=== PATIENT | female | born 1970 | race Caucasian/White ===

== ENCOUNTER 2016-09-16 16:20 | Emergency (ER) | payer OTHER ==
[2016-09-16 17:37] VITALS: BP 107/41
--- NOTE | 2016-09-16 18:35 | RAD ---
INDICATION: Fevers, chills and cough COMPARISON: Chest x-ray dated June 04, 2015 TECHNIQUE: PA and lateral views of the chest were obtained. FINDINGS: The heart and mediastinum are normal in size and contour. The lungs are grossly clear. There is no evidence of large pleural effusion. Visualized bones are normal for the patient's age. There is no radiographic evidence of free air beneath the diaphragm IMPRESSION: No radiographic evidence of acute cardiopulmonary disease.
--- NOTE | 2016-09-16 18:39 | UC ---
Respiratory Complaint HPI - HPI Summary HPI Summary: 46 yo female with cough x 5 days fever and chills wheezing no n/v/d - History of Current Complaint Chief Complaint: UCGeneralIllness Stated Complaint: FEVER/CONGESTED Time Seen by Provider: 09/16/16 17:08 Hx Obtained From: Patient Hx Last Menstrual Period: 1998 Onset/Duration: Gradual Onset, Lasting Days Timing: Constant Severity Initially: Mild Severity Currently: Moderate Pain Intensity: 8 Pain Scale Used: 0-10 Numeric Character: Cough: Nonproductive Aggravating Factors: Deep Breaths, Recumbent Position Alleviating Factors: Bronchodilator Associated Signs And Symptoms: Positive: Fever, Chills, Wheezing, Nasal Congestion, Sinus Discomfort - Allergies/Home Medications Allergies/Adverse Reactions: Allergies Allergy/AdvReac Type Severity Reaction Status Date / Time Sulfa Antibiotics Allergy Rash Verified 09/16/16 17:07 Tetraglycine Allergy Rash Verified 09/16/16 17:07 DYE Allergy Rash Uncoded 09/16/16 17:07 nonsteroidals Allergy Rash Uncoded 09/16/16 17:07 splenda Allergy Rash Uncoded 09/16/16 17:07 Home Medications: Home Medications guaiFENesin ER TAB [Mucinex*] 600 mg PO BID 09/16/16 [History Confirmed 09/16/16 ] PMH/Surg Hx/FS Hx/Imm Hx Endocrine History Of: Denies: Diabetes Cardiovascular History Of: Denies: Cardiac Disorders, Hypertension Respiratory History Of: Reports: Asthma, Bronchitis, Pneumonia - Surgical History Surgical History: Yes Surgery Procedure, Year, and Place: UTERINE aBLATION 1998. 3 C-SECTS. APPY. T &A - Family History Known Family History: Positive: Hypertension - Social History Alcohol Use: None Substance Use Type: None Smoking Status (MU): Heavy Every Day Tobacco Smoker Type: Cigarettes Amount Used/How Often: 1ppd Household Exposure Type: Cigarettes Review of Systems Constitutional: Fever, Chills, Fatigue Skin: Negative Eyes: Negative ENT: Nasal Discharge Respiratory: Cough Cardiovascular: Negative Gastrointestinal: Negative Genitourinary: Negative Motor: Negative Neurovascular: Negative Musculoskeletal: Myalgia Neurological: Negative Psychological: Negative All Other Systems Reviewed And Are Negative: Yes Physical Exam Triage Information Reviewed: Yes Appearance: Well-Appearing, No Pain Distress, Well-Nourished Vital Signs: Initial Vital Signs Temp 98.7 F 09/16/16 17:02 Pulse 81 09/16/16 17:02 Resp 16 09/16/16 17:02 BP 107/41 09/16/16 17:02 Pulse Ox 98 09/16/16 17:02 Vital Signs Reviewed: Yes Eyes: Positive: Conjunctiva Clear ENT: Positive: Hearing grossly normal. Negative: Nasal congestion, Nasal drainage, Tonsillar swelling, Tonsillar exudate, Trismus, Muffled/hoarse voice Neck: Positive: Supple, Nontender, No Lymphadenopathy Respiratory: Positive: Lungs clear, Normal breath sounds, No respiratory distress, No accessory muscle use Cardiovascular: Positive: RRR, No Murmur, Pulses Normal Abdomen Description: Positive: No Organomegaly, Soft Musculoskeletal: Positive: ROM Intact, No Edema Neurological: Positive: Alert Psychological Exam: Normal Skin Exam: Normal UC Diagnostic Evaluation - Laboratory O2 Sat by Pulse Oximetry: 98 - normal/ not hypoxic - Radiology Xray Interpretation: No Acute Changes Radiology Interpretation Completed By: Radiologist Respiratory Course/Dx - Differential Dx/Diagnosis Provider Diagnoses: acute bronchitis Discharge - Discharge Plan Condition: Stable Disposition: HOME Prescriptions: Amoxicillin (*) 875 mg PO BID #20 tab Prednisone [Deltasone] 40 mg PO DAILY #10 tab Patient Education Materials: Acute Bronchitis (ED) Forms: *Work Release Referrals: Fabrizio Prater DO [Primary Care Provider] - 3 Days (if not better ) Additional Instructions: use inhaler as directed recheck in 3-6 days if not better
== END 2016-09-16 18:36 | disposition home or self-care (01) ==
LOC: UCCORT 16:20
DX: J20.9 Acute bronchitis, unspecified (principal); Z88.2 Allergy status to sulfonamides; Z88.8 Allergy status to other drugs, medicaments and biological substances; F17.210 Nicotine dependence, cigarettes, uncomplicated
CPT/HCPCS: 71020; 87502; 99212; G0463

== ENCOUNTER 2016-09-22 07:54 | Emergency (ER) | payer OTHER ==
[2016-09-22 08:18] VITALS: BP 94/70
[2016-09-22] MEDS ORDERED: Ipratropium 0.5MG/2.5ML NEB* 0.5 MG/2.5 ML NEB.SOLN INH ONE (08:42)
[2016-09-22] MEDS ORDERED: Albuterol 2.5 MG/3 ML NEB.SOL* (0.083%) INH ONE (08:42)
--- NOTE | 2016-09-22 08:42 | UC ---
Respiratory Complaint HPI - HPI Summary HPI Summary: Seen here 5 days with cough high fever and wheezing Fever has been gone for about 3-4 days but now cough is worse no n/v/d states she was septic 2 months ago with a left thigh abscess while she was down in [facility] 3 weeks ago - History of Current Complaint Chief Complaint: UCRespiratory Stated Complaint: RE CK BRONCHITIS Time Seen by Provider: 09/22/16 08:27 Hx Obtained From: Patient Hx Last Menstrual Period: 1998 Onset/Duration: Gradual Onset, Lasting Days Timing: Constant Severity Initially: Mild Severity Currently: Moderate Pain Intensity: 4 Pain Scale Used: 0-10 Numeric Character: Cough: Nonproductive Aggravating Factors: Deep Breaths, Recumbent Position Alleviating Factors: Nothing Associated Signs And Symptoms: Positive: Fever - low grade now, Wheezing - Allergies/Home Medications Allergies/Adverse Reactions: Allergies Allergy/AdvReac Type Severity Reaction Status Date / Time Sulfa Antibiotics Allergy Rash Verified 09/16/16 17:07 Tetracycline Allergy Rash Verified 09/22/16 08:11 Tetraglycine Allergy Rash Verified 09/16/16 17:07 DYE Allergy Rash Uncoded 09/16/16 17:07 nonsteroidals Allergy Rash Uncoded 09/16/16 17:07 splenda Allergy Rash Uncoded 09/16/16 17:07 Home Medications: Home Medications Albuterol HFA INHALER* [Ventolin HFA Inhaler*] 2 puff INH Q4H PRN 09/22/16 [ History Confirmed 09/22/16] PMH/Surg Hx/FS Hx/Imm Hx Previously Healthy: Yes Endocrine History Of: Denies: Diabetes Cardiovascular History Of: Denies: Cardiac Disorders, Hypertension Respiratory History Of: Reports: Asthma, Bronchitis, Pneumonia - Surgical History Surgical History: Yes Surgery Procedure, Year, and Place: UTERINE ABLATION 1998. 3 C-SECTS. APPY. T &A - Family History Known Family History: Positive: Hypertension - Social History Alcohol Use: None Substance Use Type: None Smoking Status (MU): Heavy Every Day Tobacco Smoker Type: Cigarettes Amount Used/How Often: 1ppd Household Exposure Type: Cigarettes Review of Systems Constitutional: Fever, Chills Skin: Negative Eyes: Negative ENT: Negative Respiratory: Cough Cardiovascular: Negative Gastrointestinal: Negative Genitourinary: Negative Motor: Negative Neurovascular: Negative Musculoskeletal: Negative Neurological: Negative Psychological: Negative All Other Systems Reviewed And Are Negative: Yes Physical Exam Triage Information Reviewed: Yes Appearance: Well-Appearing, No Pain Distress, Well-Nourished Vital Signs: Initial Vital Signs Temp 98.8 F 09/22/16 07:57 Pulse 93 09/22/16 07:57 Resp 24 09/22/16 07:57 BP 94/70 09/22/16 07:57 Pulse Ox 99 09/22/16 07:57 Eyes: Positive: Conjunctiva Clear ENT: Positive: Hearing grossly normal. Negative: Nasal congestion, Nasal drainage, Trismus, Muffled/hoarse voice Neck: Positive: Supple, Nontender, No Lymphadenopathy Respiratory: Positive: No respiratory distress, No accessory muscle use, Wheezing - with forced expiration only Cardiovascular: Positive: RRR, No Murmur. Negative: Tachycardia, Bradycardia Musculoskeletal: Positive: ROM Intact, No Edema Neurological: Positive: Alert Psychological Exam: Normal Skin Exam: Normal UC Diagnostic Evaluation - Laboratory O2 Sat by Pulse Oximetry: 99 - normal/not hypoxic Re-Evaluation - Re-Evaluation First Eval Re-Evaluation Time: 09:50 Change: Unchanged - after neb still feels dysneic Respiratory Course/Dx - Course Course Of Treatment: EKG- NSR/no st changes/no ectopy. D/W Tiffany Guevara [employer] at [facility]/accepts pt. Pt declines EMS transfer - Differential Dx/Diagnosis Provider Diagnoses: Dyspnea of uncertain cause Discharge - Discharge Plan Condition: Stable Disposition: TRANS HIGHER LVL OF CARE FAC Referrals: Fabrizio Prater DO [Primary Care Provider] -
--- NOTE | 2016-09-22 08:57 | RAD ---
HISTORY: Cough, wheezing COMPARISONS: September 16, 2016 VIEWS: 2: Frontal dual-energy and lateral views of the chest. FINDINGS: CARDIOMEDIASTINAL SILHOUETTE: The cardiomediastinal silhouette is normal. KARLA: The karla are normal. PLEURA: The costophrenic angles are sharp. No pleural abnormalities are noted. LUNG PARENCHYMA: The lungs are clear. ABDOMEN: The upper abdomen is clear. There is no subphrenic gas. BONES AND SOFT TISSUES: No bone or soft tissue abnormalities are noted. OTHER: None. IMPRESSION: NO ACTIVE CARDIOPULMONARY DISEASE.
== END 2016-09-22 10:04 | disposition left against medical advice (07) ==
LOC: UCCORT 07:54
DX: R06.00 Dyspnea, unspecified (principal); F17.210 Nicotine dependence, cigarettes, uncomplicated; Z88.2 Allergy status to sulfonamides; Z88.3 Allergy status to other anti-infective agents
CPT/HCPCS: 71020; 93005; 99213; G0463; J7644

== ENCOUNTER 2017-05-16 20:33 | Emergency (ER) | payer OTHER ==
[2017-05-16 20:53] VITALS: BP 120/76
--- NOTE | 2017-05-16 21:26 | UC ---
Abdominal Pain Female HPI - HPI Summary HPI Summary: Pt presents with c/o worsening epigastric and RUQ pain X 1 week. Pt reports that she has had episodic nausea and vomiting, osvaldo loose, pale stools X1 week. Pt reports that she at e a cooking today and had sudden onset of worsening pain, nausea and epigastric pain. - History of Current Complaint Chief Complaint: UCAbdominalPain Stated Complaint: UPPER ABDOMINAL PAIN Time Seen by Provider: 05/16/17 21:12 Hx Obtained From: Patient Hx Last Menstrual Period: 1998 ?: No Onset/Duration: Gradual Onset, Lasting Days - 5, Still Present, Worse Since - onset Timing: Constant Severity Initially: Mild Severity Currently: Moderate Location: Discrete At: RUQ, Epigastric Radiates: Yes Radiates to: Back Character: Colicy, Sharp Aggravating Factor(s): Food, Deep Breaths Alleviating Factor(s): Nothing Associated Signs and Symptoms: Positive: Decreased Appetite, Nausea, Vomiting, Diarrhea, Other: - pale stools - Risk Factors Ectopic Risk Factor: Negative Ovarian Torsion Risk Factor: Negative Allergies/Adverse Reactions: Allergies Allergy/AdvReac Type Severity Reaction Status Date / Time Sulfa Antibiotics Allergy Rash Verified 05/16/17 20:52 Tetracycline Allergy Rash Verified 05/16/17 20:52 Tetraglycine Allergy Rash Verified 05/16/17 20:52 DYE Allergy Rash Uncoded 05/16/17 20:52 nonsteroidals Allergy Rash Uncoded 05/16/17 20:52 splenda Allergy Rash Uncoded 05/16/17 20:52 PMH/Surg Hx/FS Hx/Imm Hx Previously Healthy: Yes - Surgical History Surgical History: Yes Surgery Procedure, Year, and Place: UTERINE ABLATION 1998. 3 C-SECTS. APPY. T &A - Family History Known Family History: Positive: Hypertension - Social History Occupation: Employed Full-time Lives: With Family Alcohol Use: None Substance Use Type: None Smoking Status (MU): Heavy Every Day Tobacco Smoker Type: Cigarettes Amount Used/How Often: 1ppd Have You Smoked in the Last Year: No Household Exposure Type: Cigarettes Review of Systems Constitutional: Negative Skin: Negative Eyes: Negative ENT: Negative Respiratory: Negative Cardiovascular: Negative Gastrointestinal: Abdominal Pain - RUQ, epigastric, Vomiting, Diarrhea, Nausea Genitourinary: Negative Motor: Negative Neurovascular: Negative Musculoskeletal: Negative Neurological: Negative Psychological: Negative Is Patient Immunocompromised?: No All Other Systems Reviewed And Are Negative: Yes Physical Exam Triage Information Reviewed: Yes Appearance: Ill-Appearing, Pain Distress, Obese Vital Signs: Initial Vital Signs Temp 97.5 F 05/16/17 20:48 Pulse 85 05/16/17 20:48 Resp 18 05/16/17 20:48 BP 120/76 05/16/17 20:48 Pulse Ox 97 05/16/17 20:48 Vital Signs Reviewed: Yes Eye Exam: Normal ENT Exam: Normal Neck exam: Normal Respiratory Exam: Normal Cardiovascular Exam: Normal Abdomen Description: Positive: Other: - positive Brown sign, epigastirc pain, that radiates to back Bowel Sounds: Positive: Hypoactive Musculoskeletal Exam: Normal Neurological Exam: Normal Psychological Exam: Normal Skin Exam: Normal Abd Pain Female Course/Dx - Course Course Of Treatment: I discussed with the pt the need for further evaluation and testing. Pt verbalized understanding and agreed to plan of care. pt declined anti nausea medication. Pt agreed to seek care at [facility] ED for further evaluation and testing. - Differential Dx/Diagnosis Differential Diagnosis: Abdominal Aortic Aneurysm, Gall Bladder Disease, Other - IBS, Gastroenteritis Provider Diagnoses: abdominal pain. possible cholecystitis. Pt was referred to [facility] ED - Physician Notification/Consults Discussed Care of Patient With: Darya Moore - Pt accepted Time Discussed With Above Provider: 21:26 Discharge - Discharge Plan Condition: Stable Disposition: HOME Patient Education Materials: Abdominal Pain (ED) Referrals: Fabrizio Prater DO [Primary Care Provider] - As Soon As Possible Additional Instructions: It is recommended that you go to the closest Emergency Room for immediate follow up and testing.
== END 2017-05-16 21:33 | disposition home or self-care (01) ==
LOC: UCCORT 20:33
DX: R10.13 Epigastric pain (principal); F17.210 Nicotine dependence, cigarettes, uncomplicated; Z88.1 Allergy status to other antibiotic agents; Z91.048 Other nonmedicinal substance allergy status
CPT/HCPCS: 99212; G0463

== ENCOUNTER 2017-07-13 07:38 | Emergency (ER) | payer OTHER ==
[2017-07-13 07:51] VITALS: BP 136/71
[2017-07-13] MEDS ORDERED: Albuterol 2.5 MG/3 ML NEB.SOL* (0.083%) INH ONE (08:16)
[2017-07-13] MEDS ORDERED: Ipratropium 0.5MG/2.5ML NEB* 0.5 MG/2.5 ML NEB.SOLN INH ONE (08:16)
--- NOTE | 2017-07-13 08:31 | RAD ---
HISTORY: Cough, fever COMPARISONS: July 09, 2017 VIEWS: 4: Frontal dual-energy and lateral views of the chest. FINDINGS: CARDIOMEDIASTINAL SILHOUETTE: The cardiomediastinal silhouette is normal. KARLA: The karla are normal. PLEURA: The costophrenic angles are sharp. No pleural abnormalities are noted. LUNG PARENCHYMA: The lungs are clear. ABDOMEN: The upper abdomen is clear. There is no subphrenic gas. BONES AND SOFT TISSUES: No bone or soft tissue abnormalities are noted. OTHER: None. IMPRESSION: NO ACTIVE CARDIOPULMONARY DISEASE.
--- NOTE | 2017-08-04 21:55 | UC ---
Respiratory Complaint HPI - HPI Summary HPI Summary: pt seen 07/09/17 for painful dry cough cough. dx bronchitis, chest/back pain and lyn. sx not improving. sx have worsened - cough is pain and interfering with sleep - History of Current Complaint Chief Complaint: UCRespiratory Stated Complaint: RE-CHECK RESPIRATORY Time Seen by Provider: 07/13/17 07:57 Hx Obtained From: Patient Hx Last Menstrual Period: 1998 ?: No Onset/Duration: Gradual Onset, Lasting Weeks, Worse Since Timing: Constant Severity Initially: Moderate Severity Currently: Moderate Pain Intensity: 4 Pain Scale Used: 0-10 Numeric Character: Cough: Nonproductive Aggravating Factors: Deep Breaths Alleviating Factors: Bronchodilator Associated Signs And Symptoms: Positive: Pleuritic Chest Pain, Sinus Discomfort. Negative: Dyspnea, Fever, Chills, Wheezing, Hemoptysis, Dizziness, Calf Pain, Calf Swelling, Edema, URI, Hoarseness - Allergies/Home Medications Allergies/Adverse Reactions: Allergies Allergy/AdvReac Type Severity Reaction Status Date / Time Sulfa Antibiotics Allergy Rash Verified 07/09/17 09:59 Tetracycline Allergy Rash Verified 07/09/17 09:59 Tetraglycine Allergy Rash Verified 07/09/17 09:59 DYE Allergy Rash Uncoded 07/09/17 09:59 nonsteroidals Allergy Rash Uncoded 07/09/17 09:59 splenda Allergy Rash Uncoded 07/09/17 09:59 PMH/Surg Hx/FS Hx/Imm Hx Previously Healthy: Yes - Surgical History Surgical History: Yes Surgery Procedure, Year, and Place: UTERINE ABLATION 1998. 3 C-SECTS. APPY. T &A - Family History Known Family History: Positive: Hypertension Negative: Cardiac Disease, Diabetes - Social History Occupation: Employed Full-time Lives: With Family Alcohol Use: Rare Substance Use Type: None Smoking Status (MU): Light Every Day Tobacco Smoker Type: Cigarettes Amount Used/How Often: 1ppd Have You Smoked in the Last Year: Yes Household Exposure Type: Cigarettes Cessation Counseling: Patient Advised to Stop Review of Systems Constitutional: Fatigue - from cough and lack of sleep Skin: Negative Eyes: Negative ENT: Nasal Discharge, Sinus Congestion, Sinus Pain/Tenderness Respiratory: Cough Cardiovascular: Chest Pain - pleuritic Gastrointestinal: Negative Musculoskeletal: Negative Neurological: Headache - with cough Psychological: Negative All Other Systems Reviewed And Are Negative: Yes Physical Exam Triage Information Reviewed: Yes Appearance: Well-Appearing, No Pain Distress, Well-Nourished Vital Signs: Initial Vital Signs Temp 98.1 F 07/13/17 07:42 Pulse 82 07/13/17 07:42 Resp 24 07/13/17 07:42 BP 136/71 07/13/17 07:42 Pulse Ox 98 07/13/17 07:42 Vital Signs Reviewed: Yes Eyes: Positive: Conjunctiva Clear. Negative: Discharge ENT: Positive: Hearing grossly normal, Pharynx normal, Nasal congestion, Nasal drainage, TMs normal, Sinus tenderness. Negative: Tonsillar swelling, Tonsillar exudate, Trismus, Muffled voice, Hoarse voice, Dental tenderness Neck: Positive: Supple, Nontender, No Lymphadenopathy Respiratory: Positive: No respiratory distress, No accessory muscle use, Wheezing - few wheezes Cardiovascular: Positive: RRR, No Murmur Abdomen Description: Positive: Nontender, Soft. Negative: Distended, Guarding Bowel Sounds: Positive: Present Musculoskeletal Exam: Normal Neurological: Positive: Alert, Muscle Tone Normal Psychological: Positive: Age Appropriate Behavior Skin Exam: Normal UC Diagnostic Evaluation - Laboratory O2 Sat by Pulse Oximetry: 98 Respiratory Course/Dx - Course Course Of Treatment: subjective improvement s/p neb - Differential Dx/Diagnosis Differential Diagnosis/HQI/PQRI: Bronchitis, Lower Resp Infection, Sinusitis Provider Diagnoses: bronchitis Discharge - Discharge Plan Condition: Stable Disposition: HOME Prescriptions: Benzonatate CAP* [Tessalon 100 MG CAP*] 100 mg PO TID #30 cap Cefdinir [Cefdinir 300 MG CAP] 300 mg PO BID #20 cap guaiFENesin ER TAB [Mucinex*] 600 mg PO BID PRN #1 box PRN Reason: Cough guaiFENesin/CODIEN 100MG-10MG* [Robitussin AC 100Mg-10Mg*] 5 - 10 ml PO BEDTIME PRN #100 udc MDD 10ml PRN Reason: Cough Patient Education Materials: Acute Bronchitis (ED) Forms: *Work Release Referrals: Fabrizio Prater DO [Primary Care Provider] - 2 Days (FOLLOW UP IN 3-5 DAYS IF NOT IMPROVING. FOLLOW UP SOONER IF SYMPTOMS WORSEN OR NEW ONES DEVELOP.) Additional Instructions: TRY USING THE NETTI POT IN THE MORNINGS DISCUSSED. YOU MUST ALWAYS USE CLEAN WATER. REMEMBER, POSTURE IS AN IMPORTANT FACTOR IN SINUS DRAINAGE. MOVE YOUR NECK, BREATHE. INHALED BRONCHODILATORS:continue to use every 4 hours while awake You have received a prescription for an inhaled bronchodilator -- a medication which stimulates the airways in the lung to dilate. This improves the flow of air in asthma, bronchitis, and emphysema. These medicines have some similarity to adrenaline, and can cause similar side effects: shakiness, racing heart, and a sense of nervousness. These side effects decrease with time. Contact your doctor if these side effects are severe. Do not over-use the medicine. Too-frequent use of the inhaler may make it ineffective. Call your doctor if the inhaler is not controlling your symptoms at the prescribed doses. COUGH-SUPPRESSANT & EXPECTORANT MEDICATION: You are to use a cough medication as needed for relief of symptoms. This medicine is a combination of an expectorant (to make the mucous thinner and more easily "coughed up") and a cough suppressant (to reduce the frequency of coughing). The cough-suppressant medicine is related to narcotics. You may experience mild nausea and sleepiness. Some patients who are very sensitive to narcotics may have stomach pain from this medicine. Taking the medicine with food reduces these side effects. Do not drive or work with machinery until you know how this medicine affects you. The expectorant should have no side effects. Iodine-containing expectorants (such as organidin) should not be taken by persons with active thyroid disease unless approved by your doctor. Call the doctor if you develop shortness of breath, hives, rash, itching, lightheadedness, or severe nausea and vomiting. EXPECTORANT MEDICATION: WE SENT IN A SCRIPT FOR MUCINEX SO THAT IT IS EASIER FOR YOU TO PICK THE RIGHT MED AT THE PHARMACY. HOWEVER, YOU CAN ALSO GO TO THE [employer] [facility] AND BUY PLAIN GUAIFENESIN WITHOU BINDERS OR FILLERS. An expectorant medicine has been prescribed. This type of drug makes mucous thinner, helping the sinuses, nose, and bronchial tubes to remain free of pus and mucous. Expectorants make a cough less severe and more comfortable, and help infected sinuses drain. In general, antihistamines defeat the purpose of the expectorant by making mucous thicker. They should be avoided unless specifically recommended by your physician. TESSALON PERLES: You have received a prescription for Tessalon Perles (benzonatate). This is a non-narcotic medicine for relief of cough. It usually works in about 15- 20 minutes and lasts around four hours. Tessalon Perles should be swallowed. They should not be chewed or dissolved in the mouth (this can produce temporary numbing of the mouth and choking can occur). If you develop any adverse effects such as wheezing, shortness of breath, hives, rash, itching, or lightheadedness, please return at once. CEPHALOSPORINS: An antibiotic of the cephalosporin class has been prescribed. This type of antibiotic covers a wide variety of infections, including those of the skin, lungs, middle ear, and urinary tract. This antibiotic is somewhat similar to the penicillin family. In rare cases , a person who is allergic to penicillin will also be allergic to this medication. If you have had a severe allergic reaction to penicillin, and have not taken this antibiotic since that time, notify your doctor. Antibiotics which cover many germs ("broad spectrum" antibiotics) are more likely to cause diarrhea or "yeast" infections. Women prone to vaginal yeast problems may suffer an attack after taking this antibiotic. In infants, oral thrush (white spots "stuck" on the cheek) or yeast diaper rash may result. See your doctor if these problems occur. Call the doctor at once if you develop hives, itching, shortness of breath , or lightheadedness. ANYTIME YOU TAKE AN ANTIBIOTIC, IT IS IMPORTANT TO REPLENISH THE BODY'S SUPPLY OF "GOOD BACTERIA." YOU CAN GET GOOD BACTERIA FROM HIGH QUALITY CULTURED FOODS SUCH LOCAL YOGURT, SOUR KRAUT, ESTELA MAURO, NATURALLY FERMENTED PICKLES AND PROBIOTIC DRINKS. YOU CAN ALSO GET GOOD BACTERIA FROM A PROBIOTIC SUPPLEMENT. YOUR BLOOD PRESSURE WAS ELEVATED AT THIS VISIT. PLEASE FOLLOW UP WTH YOUR PCP FOR FURTHER EVALUATION.
== END 2017-07-13 10:14 | disposition home or self-care (01) ==
LOC: UCCORT 07:38
DX: J40 Bronchitis, not specified as acute or chronic (principal); Z88.2 Allergy status to sulfonamides; F17.210 Nicotine dependence, cigarettes, uncomplicated
CPT/HCPCS: 71020; 87502; 99212; G0463; J7644

== ENCOUNTER 2017-11-10 15:27 | Emergency (ER) | payer OTHER ==
--- NOTE | 2017-11-10 15:42 | UC ---
HPI Febrile Illness - HPI Summary HPI Summary: Pt with body aches, fevers with tmax 103, productive cough since thursday. + occasional wheeze, green sputum. + fatigue decreased po. No abd pain n/v/d No cp. Pt has taken APAP with temp improvement of fevers. No rash + sick contacts. Pt smokes > 1 ppd Did not get flu vaccine pt's medications reviewed this visit - History of Current Complaint Time Seen by Provider: 11/10/17 15:40 Hx Obtained From: Patient Hx Last Menstrual Period: 1998 Onset/Duration: Started Days Ago Timing: Constant Initial Severity: Mild Current Severity: Moderate Pain Intensity: 5 Pain Scale Used: 0-10 Numeric Alleviating Factors: OTC Medicine Associated Signs and Symptoms: Nausea, Sore Throat, Other: - myalgia - Allergy/Home Medications Allergies/Adverse Reactions: Allergies Allergy/AdvReac Type Severity Reaction Status Date / Time Sulfa (Sulfonamide Allergy Rash Verified 11/10/17 15:51 Antibiotics) tetracycline Allergy Rash Verified 11/10/17 15:51 DYE Allergy Rash Uncoded 11/10/17 15:51 nonsteroidals Allergy Rash Uncoded 11/10/17 15:51 splenda Allergy Rash Uncoded 11/10/17 15:51 Home Medications: Home Medications Furosemide TAB* [Lasix TAB*] 20 mg PO DAILY 11/10/17 [History Confirmed 11/10/17 ] clonazePAM TAB(*) [KlonoPIN TAB(*)] 0.5 mg PO TID PRN 11/10/17 [History Confirmed 11/10/17] PMH/Surg Hx/FS Hx/Imm Hx Previously Healthy: Yes - Surgical History Surgical History: Yes Surgery Procedure, Year, and Place: UTERINE ABLATION 1998. 3 C-SECTS. APPY. T &A - Family History Known Family History: Positive: Hypertension Negative: Cardiac Disease, Diabetes - Social History Occupation: Employed Full-time Lives: With Family Alcohol Use: Rare Substance Use Type: None Smoking Status (MU): Light Every Day Tobacco Smoker Type: Cigarettes Amount Used/How Often: 1ppd Have You Smoked in the Last Year: Yes Household Exposure Type: Cigarettes Review of Systems Constitutional: Fever, Chills, Fatigue Eyes: Drainage - left, Eye Redness ENT: Sore Throat, Nasal Discharge, Sinus Congestion Respiratory: Cough Cardiovascular: Negative Gastrointestinal: Nausea Genitourinary: Negative All Other Systems Reviewed And Are Negative: Yes Physical Exam Triage Information Reviewed: Yes Appearance: Well-Appearing, No Pain Distress Vital Signs Reviewed: Yes Eye Exam: Normal Eyes: Positive: Conjunctiva Inflamed, Discharge, Other: - LAURA, EOM intact and full ENT: Positive: Pharyngeal erythema, Nasal congestion, Other - left TM + mild crust yellow discharge injected LAURA, EOM intact and full turbinates inflammed and boggy + PND no exudate, no erythema Dental Exam: Normal Neck exam: Normal Neck: Positive: Supple, Nontender. Negative: No Lymphadenopathy - mild submandicular LA Respiratory Exam: Normal Respiratory: Positive: Chest non-tender, No respiratory distress, No accessory muscle use, Other: - +c oarse cough, scattered wheeze Cardiovascular Exam: Normal Abdominal Exam: Normal Abdomen Description: Positive: Nontender, No Organomegaly, Soft Bowel Sounds: Positive: Present Musculoskeletal Exam: Normal Neurological Exam: Normal Psychological Exam: Normal Skin Exam: Normal Diagnostics - Radiology No standard instances Radiology Interpretation Completed By: Radiologist - neg acute Re-Evaluation - Re-Evaluation Second Eval Change: Improved - Pt imrpoved following neb reviewed CXR secretion precaution hydrate motrin/apap work note albuterol abx Course/Dx - Course Course Of Treatment: Pt presents to with complaint of body aches, congestion , PND, sinus congestion and productive cough. Pt also with left eye drainage x 24 hours. On exam pt with injection and discharge left eye. coarse cough and wheeze. will check for flu. duoneb. secretion precaution. cxr. motrin/ apap. work note - Diagnoses Clinic Provider Diagnoses: conjunctivitis. acute bronchitis Discharge - Discharge Plan Condition: Stable Disposition: HOME Prescriptions: Albuterol HFA INHALER* [Ventolin HFA Inhaler*] 2 puff INH Q4H PRN #1 mdi PRN Reason: wheeze Amoxicillin/Clavulanate TAB* [Augmentin TAB 875*] 875 mg PO BID #20 tab Erythromycin OPTH OINT* [Erythromycin 0.5% OPTH OINT*] 1 applic LEFT EYE TID #1 ophth.oint Spacer/Holding Chamber (NF) [Easivent CHAMBER (NF)] 1 aer INH Q4HR #1 device Patient Education Materials: Acute Bronchitis (ED), Conjunctivitis (ED) Forms: *Work Release Referrals: Fabrizio Prater DO [Medical Doctor] - Additional Instructions: - Stay well hydrated. Drink plenty of non-alcoholic, non-caffinated beverages. - Alternate ibuprofen (Advil, Motrin) 600mg and Tylenol every 3 hours for pain or fever. Take with food. Do NOT take for more than 4-5 days. - These infections are spread by secretions - do NOT share eating or drinking utensils - clean items you share with other people such as cell phones, computer mouse, TV remote, computer tablets, etc. After you have taken antibiotics for 3 days, change your toothbrush and your pillowcase. - use nasal spray as prescribed - get plenty of restful sleep - use inhaler, 2 puffs every 4 hours today and tomorrow. then every 4 hours as needed - humidify the air in the room where you sleep - boil water, run a hot steam shower, vaporizer, cups of water by heat register - okay to take over the counter decongestant and cough medication - contact your doctor, return here, or go to the emergency department with questions or concerns
[2017-11-10 15:58] VITALS: BP 95/80
[2017-11-10] MEDS ORDERED: Albuterol/Ipratropium NEB.SOL* Albuterol 2.5 MG/Ipratropium 0.5 MG 3 ML INH ONE (16:18)
--- NOTE | 2017-11-10 17:10 | RAD ---
INDICATION: Cough and fever. COMPARISON: Comparison is made with prior chest x-ray study from July 13, 2017. TECHNIQUE: Dual-energy PA and lateral views of the chest were obtained. FINDINGS: The heart is within normal limits in size. Mediastinal and hilar contours appear within normal limits. The lungs are clear. No pleural effusion is present. IMPRESSION: NO EVIDENCE FOR ACTIVE CARDIOPULMONARY DISEASE.
== END 2017-11-10 17:22 | disposition home or self-care (01) ==
LOC: UCCORT 15:27
DX: J20.9 Acute bronchitis, unspecified (principal); H10.32 Unspecified acute conjunctivitis, left eye; Z88.2 Allergy status to sulfonamides; F17.210 Nicotine dependence, cigarettes, uncomplicated
CPT/HCPCS: 71046; 87502; 99212; A9270-GY; G0463

== ENCOUNTER 2018-07-24 12:42 | Emergency (ER) | payer OTHER ==
--- OUTSIDE RECORDS SUMMARY | 2018-07-24 14:28 | XMS REPORT | Continuity of Care Document ---
:1970 External Reference #:[id number] Author Name Rosa Isela Wiggins Care Team Providers Name Role Phone Maria Esther Izquierdo MD Care Team Information Fund Accounting Manager Unavailable Maria Esther Izquierdo MD Primary Care Physician Unavailable Payers Type Date Identification Numbers Payment Provider Subscriber Policy Number: [id number] [employer] Antonieta Murcia [address] [place] [address] Advance Directives Description No Information Available Problems Description No Information Family History Date Family Member(s) Problem(s) Comments Father Hearing Loss Father Diabetes Mother Asthma And Allergies First Son Hearing Loss First Son Asthma First Brother Seasonal Allergies Social History Type Date Description Comments Sex Female Marital Status 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 BREATHING Active 09/06/2009 Tetracycline DIFF.BREATHING,RASH Active 09/06/2009 Motrin RASH Active 03/30/2015 Tramadol GI upset and itching Active 11/30/2017 NSAIDs Active Medications Medication Date Status Form Strength Qnty SIG Indications Ordering Provider Dermotic 04/01/ Active Oil 0.01% 1unit apply 5 2017 s drops Neeraj, twice a M.D. day to affected ear canal(s)fo r 7-14 days Percocet 03/25/ Active Tablets 5-325mg 20tab one and 2017 s half Neeraj, tablets by M.D. mouth four times a day as needed for pain Azithromycin 03/19/ Active Tablets 500mg 5tabs 1 by mouth 2017 every day Jairon Pickard Clindamycin HCL 12/30/ Active Capsules 300mg 20cap 1 by mouth Buzz, 2017 s twice a Neeraj, day for 10 M.D. days Meclizine HCL 12/30/ Active Tablets 12.5mg 14tab 1-2 by Buzz, 2018 s mouth Neeraj, every 6 M.D. hours as needed dizzyness Fluticasone 11/30/ Active Suspension 50mcg/Act 1unit 2 sprays Adeline Gerber 2017 s each Neeraj, nostril M.D. every day Klonopin / Active Tablets 0.5mg tid Unknown 0000 Lasix / Active Tablets 20mg daily Unknown 0000 Joana / Active Tablets Unknown 0000 Fiber / Active Tablets Unknown 0000 Fish Oil / Active Capsules Unknown 0000 Sudafed / Active Tablets ER 120mg Unknown 0000 12HR Augmentin 04/28/ Hx Tablets 875-125mg 14tab twice a Buzz 2018 - s day 1 week Neeraj, 07/05/ M.D. 2017 Azithromycin 11/30/ Hx Tablets 250mg 6tabs 2 pills x Buzz, 2018 - 1 day then Neeraj, every M.D. 2018 day for 4 days Prednisone 11/30/ Hx Tablets 10mg 3tabs 1 by mouth Buzz, 2017 - every Neeraj, 12/30/ morning M.D. 2018 Budesonide 11/24/ Hx Suspension 0.25mg/2M 30ml 1 added to Buzz, 2016 - L saline Neeraj, 12/24/ rinse M.D. 2016 daily Dexamethasone 11/24/ Hx Tablets 4mg 3tabs 1 by mouth Buzz 2016 - Neeraj, 12/24/ M.D. 2017 Levaquin 07/18/ Hx Tablets 500mg 10tab 1 tab by Cesar Kang, 2016 - s mouth once M.D. 11/23/ a day x 10 2016 days Rhinocort Aqua 07/18/ Hx Suspension 32mcg/Act Cesar Kang, 2015 - M.D. 2016 Azithromycin 07/10/ Hx Tablets 500mg 5tabs 1 by mouth Buzz 2015 - every day Neeraj, 11/30/ M.D. 2018 Percocet 06/20/ Hx Tablets 5-325mg 20tab 1/2 q 6 Cesar Kang 2016 - s hours M.D. 06/20/ after 2015 meal. prn break through pain Percocet 06/20/ Hx Tablets 5-325mg 20tab one and Buzz, 2016 - s half Neeraj, 06/25/ tablets by M.D. 2016 mouth four times a day as needed for pain Azithromycin 02/14/ Hx Tablets 500mg 5tabs 1 by mouth Buzz, 2016 - every day Neeraj, 02/24/ M.D. 2016 Prednisone 01/28/ Hx Tablets 20mg 3tabs 1 by mouth Buzz, 2016 - every day Neeraj, 02/24/ M.D. 2016 Prednisone 01/23/ Hx Tablets 10mg 3tabs 1 by mouth Buzz, 2016 - every Neeraj, 01/27/ morning M.D. 2016 Vicodin 01/16/ Hx Tablets 5-300mg 20tab 1 -2 tab Buzz, 2016 - s every 6h Neeraj, 01/27/ M.D. 2016 Dexamethasone 11/05/ Hx Tablets 2mg 10tab 1 by mouth Buzz, 2016 - s every day Neeraj, 12/15/ M.D. 2016 Levaquin 10/25/ Hx Tablets 500mg 14tab 1 by mouth Buzz, 2016 - s every day Neeraj, 11/05/ for 14days M.D. 2016 Rhinocort Aqua 09/17/ Hx Suspension 32mcg/Act 17.2g 2 squirts Cesar Kang , 2015 - m each M.D. 11/23/ nostril 2017 every day Azithromycin 08/15/ Hx Tablets 250mg 6tabs 2 pills x Buzz, 2015 - 1 day then Neeraj, every M.D. 2016 day for 4 days Azithromycin 05/17/ Hx Tablets 500mg 5tabs 1 by mouth Buzz, 2015 - every day Neeraj, 08/15/ M.D. 2014 Azithromycin 04/07/ Hx Tablets 500mg 5tabs 1 by mouth Buzz, 2015 - every day Neeraj, 04/12/ M.D. 2015 Tramadol HCL 03/29/ Hx Tablets 50mg 30tab 2. tab Buzz, 2015 - s q4h. for Neeraj, 03/30/ pain M.D. 2014 Acetaminophen-C 03/22/ Hx Tablets 300-15mg 30tab 1 by mouth fco Gerbereine #2 2015 - s every 4 Neeraj, 03/28/ hours as M.D. 2014 needed Dexamethasone 03/22/ Hx Tablets 6mg 2tabs 1 lulu Gerber, 2015 - today and Neeraj, 03/28/ in 2 days M.D. 2014 Fish Oil 10/18/ Hx Capsules 1000mg qdRubi Schneider MD 2014 Multivitamins 10/18/ Hx Tablets Rubi Root MD 2014 Topamax 00/ Hx Tablets 50mg qday Unknown 2014 Lasix 00/ Hx Tablets 20mg 7tabs tid Unknown 2014 Vitamin C 00/ Hx Tablets 1000mg qday Unknown 2014 Afrin 00/ Hx Unknown - 2017 Zyrtec /00/ Hx Unknown 2017 Chantix /00/ Hx Tablets Unknown 2014 Omeprazole / Hx Capsules DR 40mg by mouth Unknown 0000 - twice 2017 Augmentin 00/00/ Hx Tablets 875-125mg twice a Unknown - day 1 week 2015 Mucinex /00/ Hx Unknown 2017 Immunizations Description No Information Available Vital Signs Date Vital Result Comment 07/06/2018 4:48pm Height 61 inches 5'1" 04/01/2018 10:19am Weight 221.00 lb Height 61 inches 5'1" BMI (Body Mass Index) 41.8 kg/m2 BP Systolic 128 mmHg BP Diastolic 84 mmHg Heart Rate 85 /min O2 % BldC Oximetry 95 % Body Temperature 97.6 F Pain Level 8 12/30/2017 4:18pm Weight 218.38 lb Height 61 inches 5'1" BMI (Body Mass Index) 41.3 kg/m2 BP Systolic 147 mmHg BP Diastolic 80 mmHg Heart Rate 91 /min O2 % BldC Oximetry 94 % room air Body Temperature 98.3 F Pain Level 0 11/30/2017 3:46pm Weight 220.50 lb Height 61 inches 5'1" BMI (Body Mass Index) 41.7 kg/m2 BP Systolic 129 mmHg BP Diastolic 84 mmHg Heart Rate 64 /min O2 % BldC Oximetry 97 % room air Body Temperature 97.6 F Pain Level 7 12/25/2016 3:52pm Weight 215.00 lb Height 62 inches 5'2" BMI (Body Mass Index) 39.3 kg/m2 BP Systolic 114 mmHg BP Diastolic 69 mmHg Heart Rate 79 /min O2 % BldC Oximetry 97 % Body Temperature 97.4 F 11/24/2016 4:10pm Weight 212.00 lb Height 62 inches 5'2" BMI (Body Mass Index) 38.8 kg/m2 BP Systolic 133 mmHg BP Diastolic 80 mmHg Heart Rate 77 /min O2 % BldC Oximetry 94 % Body Temperature 97.3 F 07/18/2016 9:50am Weight 206.25 lb Height 62 inches 5'2" BMI (Body Mass Index) 37.7 kg/m2 BP Systolic 124 mmHg BP Diastolic 78 mmHg Heart Rate 78 /min O2 % BldC Oximetry 98 % Body Temperature 98.6 F 07/10/2016 3:25pm Weight 202.00 lb Height 62 inches 5'2" BMI (Body Mass Index) 36.9 kg/m2 BP Systolic 142 mmHg BP Diastolic 82 mmHg Heart Rate 79 /min O2 % BldC Oximetry 99 % Body Temperature 97.3 F 06/26/2016 3:45pm Weight 202.00 lb Height 62 inches 5'2" BMI (Body Mass Index) 36.9 kg/m2 BP Systolic 136 mmHg BP Diastolic 82 mmHg Heart Rate 81 /min O2 % BldC Oximetry 98 % Body Temperature 96.9 F Pain Level 0 03/14/2016 9:25am Weight 215.00 lb Height 62 inches 5'2" BMI (Body Mass Index) 39.3 kg/m2 BP Systolic 124 mmHg BP Diastolic 76 mmHg Heart Rate 77 /min O2 % BldC Oximetry 98 % Body Temperature 97.9 F 02/26/2016 4:36pm Weight 216.00 lb Height 62 inches 5'2" BMI (Body Mass Index) 39.5 kg/m2 Body Temperature 98.3 F 01/29/2016 4:09pm Weight 213.00 lb Height 62 inches 5'2" BMI (Body Mass Index) 39.0 kg/m2 Body Temperature 97.9 F 01/24/2016 10:53am Weight 213.00 lb Height 62 inches 5'2" BMI (Body Mass Index) 39.0 kg/m2 Body Temperature 98.4 F 12/17/2015 3:57pm Weight 211.00 lb Height 62 inches 5'2" BMI (Body Mass Index) 38.6 kg/m2 BP Systolic 132 mmHg BP Diastolic 84 mmHg Heart Rate 83 /min O2 % BldC Oximetry 97 % Body Temperature 98.2 F 11/06/2015 5:28pm Weight 211.38 lb Height 62 inches 5'2" BMI (Body Mass Index) 38.7 kg/m2 BP Systolic 128 mmHg BP Diastolic 82 mmHg Heart Rate 79 /min O2 % BldC Oximetry 95 % Body Temperature 98.4 F 10/25/2015 4:44pm Weight 209.00 lb Height 62 inches 5'2" BMI (Body Mass Index) 38.2 kg/m2 BP Systolic 128 mmHg BP Diastolic 84 mmHg Heart Rate 78 /min O2 % BldC Oximetry 96 % Body Temperature 98.0 F 09/17/2015 4:30pm Weight 207.00 lb Height 62 inches 5'2" BMI (Body Mass Index) 37.9 kg/m2 08/15/2015 3:30pm Weight 207.12 lb Height 62 inches 5'2" BMI (Body Mass Index) 37.9 kg/m2 BP Systolic 130 mmHg BP Diastolic 82 mmHg Heart Rate 79 /min O2 % BldC Oximetry 97 % Body Temperature 97.4 F Lemhi Score 20 05/17/2015 4:31pm Weight 212.00 lb Height 62 inches 5'2" BMI (Body Mass Index) 38.8 kg/m2 BP Systolic 132 mmHg BP Diastolic 84 mmHg Heart Rate 81 /min O2 % BldC Oximetry 96 % Body Temperature 98.2 F 04/23/2015 4:09pm Weight 212.50 lb Height 62 inches 5'2" BMI (Body Mass Index) 38.9 kg/m2 BP Systolic 128 mmHg BP Diastolic 80 mmHg Heart Rate 75 /min O2 % BldC Oximetry 98 % Body Temperature 98.4 F 04/07/2015 10:34am Body Temperature 97.3 F 03/29/2015 3:56pm Weight 213.00 lb Height 62 inches 5'2" BMI (Body Mass Index) 39.0 kg/m2 Body Temperature 97.7 F 03/22/2015 2:04pm Weight 213.00 lb Height 62 inches 5'2" BMI (Body Mass Index) 39.0 kg/m2 BP Systolic 130 mmHg BP Diastolic 78 mmHg Heart Rate 104 /min O2 % BldC Oximetry 98 % Body Temperature 97.4 F Pain Level 7 11/08/2014 7:14pm Weight 210.00 lb Height 62 inches 5'2" BMI (Body Mass Index) 38.4 kg/m2 BP Systolic 120 mmHg BP Diastolic 78 mmHg Heart Rate 89 /min O2 % BldC Oximetry 98 % Body Temperature 99.1 F 10/18/2009 2:48pm Weight 192.25 lb Height 61.75 inches 5'1.75" BMI (Body Mass Index) 35.4 kg/m2 BP Systolic 130 mmHg BP Diastolic 80 mmHg Heart Rate 90 /min O2 % BldC Oximetry 97 % 09/06/2009 2:02pm Weight 196.00 lb Height 61.75 inches 5'1.75" BMI (Body Mass Index) 36.1 kg/m2 BP Systolic 141 mmHg BP Diastolic 80 mmHg Heart Rate 89 /min O2 % BldC Oximetry 98 % Body Temperature 98.6 F Neck Size-15" Results Test Date Facility Test Result H/L Range Note Laboratory test 02/12/2016 Counts Include [facility] Sedimentation Rate 7 mm/ hr 0-20 finding [address] [place], [place] [id number] [phone] CBS W/Automated 02/12/2016 Counts Include [facility] White Blood Count 10.2 K/ uL 3.1-10.7 Diff [address] [place] [address] [phone] Red Blood Count 5.28 M/uL 3.90-5.40 Hemoglobin 15.8 gm/dL 11.6-15.8 Hematocrit 46.6 % High 36.0-46.1 Mean Cell Volume 88.3 fl 80.9-99.0 Mean Corpuscular HGB 29.9 pg 25.9-32.7 Mean Corpuscular HGB Conc 33.9 g/dL 30.8-34.3 Platelet Count 254 K/uL 155-360 Red Cell Distri Width SD 46.0 fl 3-47 Red Cell Distri Width %CV 14.5 % High 11.7-14.4 Mean Platelet Volume 10.8 fL 8.9-12.4 Neut% 52.6 % 40.4-72.8 Lymph % 36.2 % 17.0-46.1 [place] % 8.8 % 4.3-13.2 Eo% 2.2 % 0.0-6.6 Bas% 0.2 % 0.0-1.1 Neut# 5.35 K/uL 1.8-7.0 Lymph # 3.67 K/uL 1.8-7.0 [place] # 0.89 K/uL 0.3-0.9 Eos # 0.22 K/uL 0.0-0.5 Baso # 0.02 K/uL 0.0-0.1 Laboratory test 03/15/2015 Counts Include [facility] Uvula Biopsy Or See Note [address] [place] [address] [phone] Laboratory test 03/15/2015 Counts Include [facility] Urine HCG NEGATIVE Negative [address] (Qualitative) [place] [address] [phone] 1 OPERATION/PROCEDURE Endoscopic FESS UPP, septoplasty DIAGNOSIS: "UVULECTOMY": BENIGN UVULA WITH EDEMA OF STROMA. NEETA/clf 0956 GROSS The specimen is received in formalin in a container labeled, "UVULA". The specimen consists of a 1.5 x 1.0 x 0.5 cm. pink-hernandez uvula, which is bisected and submitted entirely in one block. Also in the container is a second piece of soft nguyễn- hernandez tissue measuring 0.5 x 0.5 x 0.3 cm., submitted in one block. NEETA/clf PRE OPERATIVE DIAGNOSIS KAMRAN, DNS, chronic sinusitis REVIEW CODE CODE: I Signed Electronically signed LORENA JESSICA MD [id number] 2 FIRST MORNING SPECIMENS GENERALLY CONTAIN THE HIGHEST CONCENTRATION OF HCG AND ARE RECOMMENDED FOR EARLY DETECTION OF . Procedures Date Code Description Status 03/25/2018 62031 Nasal/Sinus Endosc.W.Max.Antrost. Completed 03/25/2018 34687 Nasal/Sinus Endosc.Surg.W.Ethmoid Completed 03/25/2018 35220 Submucous Resect.Turb.Par Or Comp Completed 03/25/2018 61413 Anesthesia, Nose & Accessory Sinus Surgery Not Completed Otherwise Spec 11/24/2016 50540 Nasal Endoscopy, Diag. Completed 06/20/2016 46841 Rhinoplasty, Incl.Septal Repair Completed 06/20/2016 22654 Remove Cartilage For Graft Costochondral Completed 06/20/2016 66768 Anesthesia, Rib Resection Partial Not Otherwise Spec Completed 01/29/2016 68797 Tympanometry Completed 01/29/2016 98289 Audiometry, Comprehensive Completed 01/17/2016 08872 Nasal/Sinus Endosc.W.Max.Antrost. Completed 01/17/2016 61103 Repair Of Nasal Vestibular Completed 01/17/2016 36237 Anesthesia, Nose & Accessory Sinus Surgery Not Completed Otherwise Spec 12/07/2015 03989 Nasal Endoscopy, Diag. Completed 09/04/2015 81870 Sleep Staging 4Or More Para Completed 03/15/2015 21688 Stereotactic Computer-Assisted, Cranial, Extradural Completed 03/15/2015 61550 Palatopharyngoplasty Completed 03/15/2015 74210 Nasal/Sinus Endoscopy Surg/Sphen. Completed 03/15/2015 17699 Nasal/Sinus Endosc.W.Max.Antrost. Completed 03/15/2015 09835 Nasal/Sinus Endosc.Surg.W.Ethmoid Completed 03/15/2015 79281 Septoplasty Completed 03/15/2015 44903 Submucous Resect.Turb.Par Or Comp Completed 11/08/2014 72194 Fiberoptic Laryngoscopy,Diag. 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 J31.0 Chronic rhinitis R51 Headache R06.83 Snoring Office Visit 11/24/2016 4:00p Main Office Bushra Sotelo32.9 Chronic sinusitis, Garibay, EMB[employer] HARDWARE ENGINEER unspecified Office Visit 07/18/2016 9:30a Main Office Cesar Kang M.D. 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 R51 Headache G43.909 Migraine, unsp, not intractable, without status migrainosus J34.89 Other specified disorders of nose and nasal sinuses Office Visit 02/26/2016 4:45p Main Office Neeraj Gerber M.D. J31.0 Chronic rhinitis R51 Headache Office Visit 01/29/2016 4:00p Main Office Neeraj Gerber, H90.3 Sensorineural hearing M.D. loss, bilateral H69.83 Other specified disorders of Eustachian tube, bilateral J31.0 Chronic rhinitis Office Visit 12/17/2015 3:45p Main Office Neeraj Gerber J32.9 Chronic sinusitis, M.D. unspecified J31.0 Chronic rhinitis Office Visit 12/07/2015 3:45p Main Office Neeraj Gerber J32.9 Chronic sinusitis, M.D. unspecified J31.0 Chronic rhinitis Office Visit 11/06/2015 5:30p Main Office Neeraj Gerber J32.9 Chronic sinusitis, M.D. unspecified R06.83 Snoring Office Visit 10/25/2015 4:30p Main Office Bushra Sotelo32.9 Chronic sinusitis, Garibay, EMB[employer] HARDWARE ENGINEER unspecified Office Visit 09/17/2015 4:30p Main Office Bushra A J01.81 Other acute Garibay, EMB[employer] HARDWARE ENGINEER recurrent sinusitis Office Visit 08/15/2015 3:30p Main Office Bushra A G47.9 Sleep disorder, INGE Garibay unspecified R06.83 Snoring J34.3 Hypertrophy of nasal turbinates J01.80 Other acute sinusitis Office Visit 04/09/2015 4:30p Main Office Neeraj Gerber, 380.10 Otitis Externa M.D. Infective Unspec 388.70 Otalgia & Earache Unspec Office Visit 04/07/2015 10:30a Main Office Neeraj Gerber, 388.70 Otalgia & Earache M.D. Unspec 380.22 Otitis Externa Other Acute Office Visit 11/08/2014 6:15p Main Office Neeraj Gerber, 786.09 Dyspnea & Respiratory M.D. Abnormalities Other 780.50 Sleep Disturbance Unspec 473.9 Sinusitis Chronic Unspec 472.0 Rhinitis Chronic 470 Deviated Nasal Septum 381.81 Eustachian Tube Dysfunction 478.0 Hypertrophy Nasal Turbinates Office Visit 10/18/2009 3:00p Main Office Kan [address] MD 780.53 Apnea - W/ Hypersomnia, Unspecified Office Visit 09/06/2009 2:15p Main Office Kan [address] MD 780.53 Apnea - W/ Hypersomnia, Unspecified Plan of Treatment No Information Available
--- OUTSIDE RECORDS SUMMARY | 2018-07-24 14:28 | XMS REPORT | Continuity of Care Document ---
:1970 External Reference #:[id number] Author Name Rosa Isela Wiggins Care Team Providers Name Role Phone Maria Esther Izquierdo MD Care Team Information Electrotyper Apprentice Unavailable Maria Esther Izquierdo MD Primary Care Physician Unavailable Payers Type Date Identification Numbers Payment Provider Subscriber Policy Number: [id number] [employer] Antonieta Murcia [address] [place] [address] Advance Directives Description No Information Available Problems Description No Information Family History Date Family Member(s) Problem(s) Comments Father Hearing Loss Father Diabetes Mother Asthma And Allergies First Son Hearing Loss First Son Asthma First Brother Seasonal Allergies Social History Type Date Description Comments Sex Female Marital Status 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 every day Klonopin / Active [...] Afrin 00/ Hx Unknown - 2017 Zyrtec 00/ Hx Unknown 2017 Chantix /00/ Hx Tablets Unknown 2014 Omeprazole / Hx Capsules DR 40mg by mouth Unknown 0000 - twice 2017 Augmentin 00/00/ Hx Tablets 875-125mg twice a Unknown - day 1 week 2015 Mucinex /00/ Hx Unknown - 2017 Immunizations Description No Information Available Vital Signs Date Vital Result Comment 07/06/2018 4:48pm Weight 224.00 lb Height 61 inches 5'1" BMI (Body Mass Index) 42.3 kg/m2 BP Systolic 119 mmHg BP Diastolic 84 mmHg Heart Rate 70 /min O2 % BldC Oximetry 97 % Body Temperature 98.2 F Pain Level 5 04/01/2018 10:19am Weight 221.00 lb Height 61 [...] Oximetry 97 % Body Temperature 97.4 F [place] Score 20 05/17/2015 4:31pm Weight 212.00 lb [...] Result H/L Range Note Laboratory test 02/12/2016 [facility] Sedimentation Rate 7 mm/ hr 0-20 finding [address] [place], [place] [id number] [phone] CBS W/Automated 02/12/2016 [facility] White Blood Count 10.2 K/ uL 3.1-10.7 Diff [address] [place] [address] [phone] Red Blood Count 5.28 M/uL 3.90-5.40 Hemoglobin [...] % 40.4-72.8 Lymph % 36.2 % 17.0-46.1 Imperial % 8.8 % 4.3-13.2 Eo% 2.2 % 0.0-6.6 Bas% 0.2 % 0.0-1.1 Neut# 5.35 K/uL 1.8-7.0 Lymph # 3.67 K/uL 1.8-7.0 Imperial # 0.89 K/uL 0.3-0.9 Eos # 0.22 K/uL 0.0-0.5 Baso # 0.02 K/uL 0.0-0.1 Laboratory test 03/15/2015 [facility] Uvula Biopsy Or See Note [address] [place] [address] [phone] Laboratory test 03/15/2015 [facility] Urine HCG NEGATIVE Negative [address] (Qualitative) [place] [address] [phone] 1 OPERATION/PROCEDURE Endoscopic FESS UPP, septoplasty DIAGNOSIS: [...] . Procedures Date Code Description Status 03/25/2018 52226 Nasal/Sinus Endosc.W.Max.Antrost. Completed 03/25/2018 61514 Nasal/Sinus Endosc.Surg.W.Ethmoid Completed 03/25/2018 20293 Submucous Resect.Turb.Par Or Comp Completed 03/25/2018 64191 Anesthesia, Nose & Accessory Sinus Surgery Not Completed Otherwise Spec 11/24/2016 73351 Nasal Endoscopy, Diag. Completed 06/20/2016 91324 Rhinoplasty, Incl.Septal Repair Completed 06/20/2016 78409 Remove Cartilage For Graft Costochondral Completed 06/20/2016 24344 Anesthesia, Rib Resection Partial Not Otherwise Spec Completed 01/29/2016 97580 Tympanometry Completed 01/29/2016 31101 Audiometry, Comprehensive Completed 01/17/2016 21804 Nasal/Sinus Endosc.W.Max.Antrost. Completed 01/17/2016 34271 Repair Of Nasal Vestibular Completed 01/17/2016 76305 Anesthesia, Nose & Accessory Sinus Surgery Not Completed Otherwise Spec 12/07/2015 55559 Nasal Endoscopy, Diag. Completed 09/04/2015 22371 Sleep Staging 4Or More Para Completed 03/15/2015 49065 Stereotactic Computer-Assisted, Cranial, Extradural Completed 03/15/2015 83399 Palatopharyngoplasty Completed 03/15/2015 36056 Nasal/Sinus Endoscopy Surg/Sphen. Completed 03/15/2015 88528 Nasal/Sinus Endosc.W.Max.Antrost. Completed 03/15/2015 94583 Nasal/Sinus Endosc.Surg.W.Ethmoid Completed 03/15/2015 26749 Septoplasty Completed 03/15/2015 54520 Submucous Resect.Turb.Par Or Comp Completed 11/08/2014 74023 Fiberoptic Laryngoscopy,Diag. Completed 09/10/2009 21821 Sleep Staging 4Or More Para Completed 07/18/2009 [id number] Bone Mineral Density Test Completed 07/18/2009 [id number] Diabetic Retinal Eye Exam Completed 07/18/2009 [id number] Diabetic Foot Exam Completed Encounters Type Date Location Provider Dx Diagnosis Office Visit 12/30/2017 Main Office Deepak Sandhu01.90 Acute sinusitis, 4:15p [employer] unspecified J32.0 Chronic maxillary sinusitis Office Visit 11/30/2017 3:45p Main Office Bushra Sotelo01.90 Acute sinusitis, Garibay, [employer] unspecified R06.83 Snoring Office Visit 12/25/2016 3:45p Main Office Neeraj Gerber M.D. 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
--- NOTE | 2018-07-24 14:52 | UC ---
Eye Complaint HPI - HPI Summary HPI Summary: 48 y/o female with c/o throat pain x 3 days, L ear extending down to L neck pain x 24 hours, + fatigue, no chills. No SOB, + TOB use. - History of Current Complaint Stated Complaint: ST Time Seen by Provider: 07/24/18 14:30 Hx Last Menstrual Period: s/p uterine ablation 1998 Onset/Duration: Gradual Onset, Lasting Days, Worse Since - 24 hours Timing: Constant Severity Initially: Mild Severity Currently: Moderate Character: Dull - Allergies/Home Medications Allergies/Adverse Reactions: Allergies Allergy/AdvReac Type Severity Reaction Status Date / Time NSAIDS (Non-Steroidal Allergy Rash Verified 07/24/18 15:20 Anti-Inflamma red (food color) Allergy Rash Verified 07/24/18 15:20 sucralose Allergy Rash Verified 07/24/18 15:20 [From Splenda (sucralose)] Sulfa (Sulfonamide Allergy Rash Verified 07/24/18 15:20 Antibiotics) tetracycline Allergy Rash Verified 07/24/18 15:20 PMH/Surg Hx/FS Hx/Imm Hx Previously Healthy: No - TOB use - Surgical History Surgical History: Yes Surgery Procedure, Year, and Place: UTERINE ABLATION 1998. 3 C-SECTS. APPY. T &A - Family History Known Family History: Positive: Hypertension Negative: Cardiac Disease, Diabetes - Social History Alcohol Use: Rare Substance Use Type: None Smoking Status (MU): Heavy Every Day Tobacco Smoker Type: Cigarettes Amount Used/How Often: <1 PPD Length of Time of Smoking/Using Tobacco: Since Age 16 Have You Smoked in the Last Year: Yes Household Exposure Type: Cigarettes Review of Systems All Other Systems Reviewed And Are Negative: Yes Constitutional: Positive: Chills, Fatigue ENT: Positive: Sore Throat, Ear Ache, Sinus Congestion, Sinus Pain/Tenderness Respiratory: Positive: Cough Is Patient Immunocompromised?: No Physical Exam Triage Information Reviewed: Yes Appearance: No Pain Distress, Well-Nourished, Ill-Appearing - mild Eyes: Positive: Conjunctiva Clear ENT: Positive: Pharyngeal erythema - minimal + exudates, TM bulging - b/l, L > R , TM red, Sinus tenderness - b/l frontal, max, Uvula midline. Negative: Tonsillar swelling, Tonsillar exudate Neck: Positive: Supple, Nontender, Enlarged Nodes @ - periaur, submand b/l L > R Respiratory: Positive: Chest non-tender, Normal breath sounds, No respiratory distress, No accessory muscle use, Rhonchi - L uL. Negative: Stridor, Wheezing , Expiration Cardiovascular: Positive: RRR, No Murmur, Pulses Normal Eye Complaint Course/Dx - Course Course Of Treatment: rapid strep: negative, sinusitis and ear infection, abx given - Differential Dx/Diagnosis Provider Diagnosis: Sinusitis, AOM (acute otitis media) Discharge - Sign-Out/Discharge Documenting (check all that apply): Patient Departure All imaging exams completed and their final reports reviewed: No Studies - Discharge Plan Condition: Good Disposition: HOME Prescriptions: Levofloxacin TAB* [Levaquin TAB*] 500 mg PO DAILY #7 tab Patient Education Materials: Sinusitis (ED), Ear Infection (ED) Referrals: Maria Esther Izquierdo MD [Primary Care Provider] - Additional Instructions: - Ear infection and sinusitis - Antibiotics as directed - Increase fluid intake - motrin/ tylenol as needed for pain - Increase deep breathing - Billing Disposition and Condition Condition: GOOD Disposition: Home
[2018-07-24 15:25] VITALS: BP 119/77
== END 2018-07-24 15:27 | disposition home or self-care (01) ==
LOC: UCCORT 12:42
DX: J32.9 Chronic sinusitis, unspecified (principal); H66.93 Otitis media, unspecified, bilateral; Z88.6 Allergy status to analgesic agent; Z88.1 Allergy status to other antibiotic agents; Z88.2 Allergy status to sulfonamides; F17.210 Nicotine dependence, cigarettes, uncomplicated
CPT/HCPCS: 87651; 99212; G0463

== ENCOUNTER 2018-09-16 19:36 | Emergency (ER) | payer OTHER ==
[2018-09-16 20:39] VITALS: BP 126/88
--- NOTE | 2018-09-16 20:49 | UC ---
Respiratory Complaint HPI - HPI Summary HPI Summary: PT presents with progressive cough, yellow sputum, fatigue and fevers. Pt has been using her albuterol (no aerochamber) with short term improvement. Pt denies n/v. Pt states wheezes and gets SOB cough with yellow sputum. Pt with h /o asthma, smoking and pna Pt's medications reviewed this visit. - History of Current Complaint Chief Complaint: UCRespiratory Stated Complaint: COUGH/CONGESTION/FEVER Time Seen by Provider: 09/16/18 20:44 Hx Obtained From: Patient Hx Last Menstrual Period: s/p uterine ablation 1998 ?: No Onset/Duration: Gradual Onset Pain Intensity: 6 - Allergies/Home Medications Allergies/Adverse Reactions: Allergies Allergy/AdvReac Type Severity Reaction Status Date / Time NSAIDS (Non-Steroidal Allergy Rash Verified 09/16/18 20:36 Anti-Inflamma red (food color) Allergy Rash Verified 09/16/18 20:36 sucralose Allergy Rash Verified 09/16/18 20:36 [From Splenda (sucralose)] Sulfa (Sulfonamide Allergy Rash Verified 09/16/18 20:36 Antibiotics) tetracycline Allergy Rash Verified 09/16/18 20:36 PMH/Surg Hx/FS Hx/Imm Hx Respiratory History: Asthma, Bronchitis, Pneumonia - Surgical History Surgical History: Yes Surgery Procedure, Year, and Place: UTERINE ABLATION 1998. 3 C-SECTS. APPY. T &A - Family History Known Family History: Positive: Hypertension Negative: Cardiac Disease, Diabetes - Social History Occupation: Employed Full-time Lives: With Family Alcohol Use: Rare Substance Use Type: None Smoking Status (MU): Heavy Every Day Tobacco Smoker Type: Cigarettes Amount Used/How Often: <1 PPD Length of Time of Smoking/Using Tobacco: Since Age 16 Have You Smoked in the Last Year: Yes Household Exposure Type: Cigarettes Review of Systems All Other Systems Reviewed And Are Negative: Yes Constitutional: Positive: Fatigue ENT: Positive: Ear Ache - congestion, Sinus Congestion Respiratory: Positive: Cough, Other - wheeze Physical Exam - Summary Physical Exam Summary: Vital Signs Reviewed: Yes A+Ox3, no distress Eyes: Conjunctiva Clear, LAURA. EOM intact and full ENT: Hearing grossly normal TM x 2 clear, congested + TTP max sinuses, + PND mmoist, uvula midline, no exudate, no erythema Neck: Positive: Supple Respiratory: Positive: No respiratory distress, No accessory muscle use + scattered end expratory wheeze, no retractions speaking full sentences Cardiovascular: RRR nl s1, s2 no m/r CBT <2 sec abd soft + BS nt/nd no guarding, no distension Musculoskeletal Exam: LOPEZ x 4 without difficulty Strength Intact, ROM Intact Neurological: Positive: Alert, + sensation throughout Psychological: Positive: Normal Response To Family Skin: Positive: no rash, no ecchymosis Vital Signs: Initial Vital Signs Temp 97.1 F 09/16/18 20:35 Pulse 88 09/16/18 20:35 Resp 17 09/16/18 20:35 BP 126/88 09/16/18 20:35 Pulse Ox 99 09/16/18 20:35 UC Diagnostic Evaluation - Laboratory O2 Sat by Pulse Oximetry: 99 Respiratory Course/Dx - Course Course Of Treatment: Pt with 4 days cough, yellow sputum, fever, wheeze. Pt with h/o tobacco use, asthma, bronchitis. VSS. Pt with end ehxhalation wheeze. Influenza neg. will start abx given h.o lung dx. pt states unable to thae PCN, doxycycline, zithromax - states "always give me levaquin". I had long conversation with pt regardingthe risks and concerns of levaquin - pt continues to request. will give prednisone. aeorchamber. strict f/u, return precautions - Differential Dx/Diagnosis Provider Diagnosis: Acute bronchitis Discharge - Sign-Out/Discharge Documenting (check all that apply): Patient Departure All imaging exams completed and their final reports reviewed: No Studies - Discharge Plan Condition: Stable Disposition: HOME Prescriptions: Albuterol HFA INHALER* [Ventolin HFA Inhaler*] 2 puff INH Q4H PRN #1 mdi PRN Reason: wheeze Levofloxacin TAB* [Levaquin TAB*] 500 mg PO DAILY #9 tab predniSONE TAB* [Deltasone 20 MG TAB*] 20 mg PO DAILY #13 tab Patient Education Materials: Acute Bronchitis (ED) Forms: *Work Release Referrals: Maria Esther Izquierdo MD [Primary Care Provider] - Additional Instructions: - Okay to take tylenol 6hours as needed for pain. Take with food. Do NOT take for more than 4-5 days. -Take antibiotics exactly as prescribed until gone - Take prednisone as prescribed until gone -Use your albuterol with a spacer - 2 puffs every 4 hours for the next 3 days - then as needed -Stay well hydrated - avoid excess caffeine and all alcohol -Eat regular, healthy meals -Contact your doctor to arrange a follow-up appointment this week. Call your doctor, return here or go to the emergency department with any questions or concerns - Billing Disposition and Condition Condition: STABLE Disposition: Home
[2018-09-16] MEDS ORDERED: predniSONE TAB* 20 MG PO ONE (20:57)
[2018-09-16] MEDS ORDERED: Albuterol/Ipratropium NEB.SOL* Albuterol 2.5 MG/Ipratropium 0.5 MG 3 ML INH ONE (20:57)
[2018-09-16] MEDS ORDERED: Levofloxacin TAB* 500 MG PO ONE (21:27)
== END 2018-09-16 21:38 | disposition home or self-care (01) ==
LOC: UCCORT 19:36
DX: J20.9 Acute bronchitis, unspecified (principal); Z88.6 Allergy status to analgesic agent; Z88.1 Allergy status to other antibiotic agents; Z88.2 Allergy status to sulfonamides; F17.210 Nicotine dependence, cigarettes, uncomplicated
CPT/HCPCS: 99213; A9270-GY; G0463; J7512

== ENCOUNTER 2018-09-20 12:43 | Emergency (ER) | payer OTHER ==
[2018-09-20 14:26] VITALS: BP 125/79
--- NOTE | 2018-09-20 14:33 | UC ---
General HPI - HPI Summary HPI Summary: pt was here on 09/16/18 for lung complaints. she was tx with prednisone, albuterol inhaler and levaquin but no relief. returns for worsening subjective f/c's, sweating, cough, back pain from coughing , fatigue and sinus congestion. hx asthma. + smoker. - History of Current Complaint Stated Complaint: RECHECK-FEVER/COUGH/CHILLS Time Seen by Provider: 09/20/18 14:20 Hx Obtained From: Patient Hx Last Menstrual Period: ablation Pain Intensity: 8 Associated Signs & Symptoms: Negative: Chest Pain - Allergy/Home Medications Allergies/Adverse Reactions: Allergies Allergy/AdvReac Type Severity Reaction Status Date / Time NSAIDS (Non-Steroidal Allergy Rash Verified 09/16/18 20:36 Anti-Inflamma red (food color) Allergy Rash Verified 09/16/18 20:36 sucralose Allergy Rash Verified 09/16/18 20:36 [From Splenda (sucralose)] Sulfa (Sulfonamide Allergy Rash Verified 09/16/18 20:36 Antibiotics) tetracycline Allergy Rash Verified 09/16/18 20:36 PMH/Surg Hx/FS Hx/Imm Hx Respiratory History: Asthma - Surgical History Surgical History: Yes Surgery Procedure, Year, and Place: UTERINE ABLATION 1998. 3 C-SECTS. APPY. T &A - Family History Known Family History: Positive: Hypertension Negative: Cardiac Disease, Diabetes - Social History Occupation: Employed Full-time Alcohol Use: None Substance Use Type: None Smoking Status (MU): Heavy Every Day Tobacco Smoker Type: Cigarettes Amount Used/How Often: <1 PPD Length of Time of Smoking/Using Tobacco: Since Age 16 Have You Smoked in the Last Year: Yes Household Exposure Type: Cigarettes Review of Systems All Other Systems Reviewed And Are Negative: Yes Constitutional: Positive: Fever, Chills, Fatigue Skin: Positive: Negative Eyes: Positive: Negative ENT: Positive: Sinus Congestion, Sinus Pain/Tenderness Respiratory: Positive: Shortness Of Breath, Cough Cardiovascular: Positive: Negative Gastrointestinal: Positive: Negative Genitourinary: Positive: Negative Motor: Positive: Negative Neurovascular: Positive: Negative Musculoskeletal: Positive: Negative Neurological: Positive: Negative Psychological: Positive: Negative Is Patient Immunocompromised?: No Physical Exam Triage Information Reviewed: Yes Appearance: Well-Appearing Vital Signs: Initial Vital Signs Temp 97.0 F 09/20/18 14:19 Pulse 89 09/20/18 14:19 Resp 21 09/20/18 14:19 BP 125/79 09/20/18 14:19 Pulse Ox 99 09/20/18 14:19 Vital Signs Reviewed: Yes Eyes: Positive: Conjunctiva Clear ENT: Positive: Pharynx normal, Nasal congestion, TMs normal, Sinus tenderness. Negative: Nasal drainage Neck: Positive: Supple, Nontender, No Lymphadenopathy Respiratory: Positive: No respiratory distress, Decreased breath sounds, Other: - NPC Cardiovascular: Positive: RRR, No Murmur Abdomen Description: Positive: Nontender, No Organomegaly, Soft Bowel Sounds: Positive: Present Musculoskeletal: Positive: ROM Intact Neurological: Positive: Alert Psychological: Positive: Age Appropriate Behavior Skin Exam: Normal Diagnostics - Laboratory Diagnostic Studies Completed/Ordered: rapid flu=negative - Radiology No standard instances Radiology Interpretation Completed By: Radiologist - CXR=NO ACTIVE CARDIOPULMONARY DISEASE. Course/Dx - Course Course Of Treatment: pt advised of ill effects on her health due to smoking and advised work on quiting. pt states has cut back with this illness. non toxic, no hypoxic. rapid flu and cxr are negative. case d/w Dr Bettencourt. I will continue the antibiotic and albuterol. will not wean from steroid, will keep pt at 40mg daily. pt advised call pcp today and f/u radha plus go to ER for any worsening to which she agrees. - Differential Dx - Multi-Symptom Differential Diagnoses: Other - uri, sinsuitis, bronchitis, asthma, pneumonia.No concern for PE or cardiac pathology. - Diagnoses Provider Diagnosis: URI (upper respiratory infection), Bronchitis, Asthma Discharge - Sign-Out/Discharge Documenting (check all that apply): Patient Departure All imaging exams completed and their final reports reviewed: Yes - Discharge Plan Condition: Stable Disposition: HOME Patient Education Materials: Upper Respiratory Infection (DC), Acute Bronchitis (ED), Asthma (ED) Forms: *Work Release Referrals: Maria Esther Izquierdo MD [Primary Care Provider] - As Soon As Possible Additional Instructions: CONTINUE THE LEVAQUIN DIRECTED. CONTINUE THE INHALER 2 PUFFS EVERY 6 HOURS DIRECTED. CONTINUE THE PREDNISONE AT 40MG DAILY-DO NOT WEAN. - Billing Disposition and Condition Condition: STABLE Disposition: Home
[2018-09-20] MEDS ORDERED: Albuterol/Ipratropium NEB.SOL* Albuterol 2.5 MG/Ipratropium 0.5 MG 3 ML INH ONE (14:34)
[2018-09-20] MEDS ORDERED: methylPREDNISolone 125 MG* 2 ML VIAL IM ONE (14:44)
== END 2018-09-20 15:36 | disposition home or self-care (01) ==
LOC: UCCORT 12:43
DX: J06.9 Acute upper respiratory infection, unspecified (principal); J40 Bronchitis, not specified as acute or chronic; J45.909 Unspecified asthma, uncomplicated; Z88.6 Allergy status to analgesic agent; Z88.2 Allergy status to sulfonamides; Z88.1 Allergy status to other antibiotic agents; Z91.02 Food additives allergy status; F17.210 Nicotine dependence, cigarettes, uncomplicated
CPT/HCPCS: 71046; 96372; 99212; A9270-GY; G0463; J2930

== ENCOUNTER 2019-01-17 17:54 | Emergency (ER) | payer OTHER ==
[2019-01-17 20:25] VITALS: BP 109/73
[2019-01-17] MEDS ORDERED: ceFUROXime TAB(*) 250 MG PO ONE (20:51)
--- NOTE | 2019-01-17 20:52 | UC ---
Throat Pain/Nasal Ashwin HPI - HPI Summary HPI Summary: 48 yo female with seaonal allergies x weeks using netti pot sinus congestion/post nasal drip now with 3 days of sore throat and upper dental pain no f/c - History of Current Complaint Chief Complaint: UCGeneralIllness Stated Complaint: SORE THROAT,HEADACHE Time Seen by Provider: 01/17/19 20:44 Hx Obtained From: Patient Hx Last Menstrual Period: s/p uterine ablation Onset/Duration: Gradual Onset, Lasting Weeks, Worse Since - 3 days Severity: Severe Pain Intensity: 8 Pain Scale Used: 0-10 Numeric Cough: None Associated Signs & Symptoms: Positive: Sinus Discomfort, Nasal Discharge - Epiglottits Risk Factors Epiglottis Risk Factors: Negative - Allergies/Home Medications Allergies/Adverse Reactions: Allergies Allergy/AdvReac Type Severity Reaction Status Date / Time NSAIDS (Non-Steroidal Allergy Rash Verified 01/17/19 20:21 Anti-Inflamma red (food color) Allergy Rash Verified 01/17/19 20:21 sucralose Allergy Rash Verified 01/17/19 20:21 [From Splenda (sucralose)] Sulfa (Sulfonamide Allergy Rash Verified 01/17/19 20:21 Antibiotics) tetracycline Allergy Rash Verified 01/17/19 20:21 PMH/Surg Hx/FS Hx/Imm 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 3 C-SECTS. APPY. T &A - Family History Known Family History: Positive: Cardiac Disease, Hypertension, Diabetes - Social History Alcohol Use: None Substance Use Type: None Smoking Status (MU): Heavy Every Day Tobacco Smoker Type: Cigarettes Amount Used/How Often: <1 PPD Length of Time of Smoking/Using Tobacco: Since Age 16 Have You Smoked in the Last Year: Yes Household Exposure Type: Cigarettes Review of Systems All Other Systems Reviewed And Are Negative: Yes Constitutional: Positive: Fatigue Skin: Positive: Negative Eyes: Positive: Negative ENT: Positive: Dental Pain, Sore Throat, Nasal Discharge, Sinus Congestion, Sinus Pain/Tenderness Respiratory: Positive: Negative Cardiovascular: Positive: Negative Gastrointestinal: Positive: Negative Genitourinary: Positive: Negative Motor: Positive: Negative Neurovascular: Positive: Negative Musculoskeletal: Positive: Negative Neurological: Positive: Headache Psychological: Positive: Negative Physical Exam Triage Information Reviewed: Yes Appearance: Well-Appearing, No Pain Distress, Well-Nourished Vital Signs: Initial Vital Signs Temp 97.3 F 01/17/19 20:18 Pulse 80 01/17/19 20:18 Resp 18 01/17/19 20:18 BP 109/73 01/17/19 20:18 Pulse Ox 97 01/17/19 20:18 Vital Signs Reviewed: Yes Eyes: Positive: Conjunctiva Clear ENT: Positive: Hearing grossly normal, Pharyngeal erythema, Nasal congestion, TMs normal, Sinus tenderness. Negative: Nasal drainage, Tonsillar swelling, Tonsillar exudate, Trismus, Muffled voice, Hoarse voice, Dental tenderness, Uvula midline - uvula surgically absent Dental Exam: Normal Neck: Positive: Supple, Nontender, No Lymphadenopathy Respiratory: Positive: Lungs clear, Normal breath sounds, No respiratory distress, No accessory muscle use Cardiovascular: Positive: RRR, No Murmur Musculoskeletal: Positive: Strength Intact, ROM Intact Neurological: Positive: Alert Psychological Exam: Normal Skin Exam: Normal Diagnostics - Laboratory Lab Results: strep (-) Throat Pain/Nasal Course/Dx - Differential Dx/Diagnosis Provider Diagnosis: Acute sinusitis Discharge - Sign-Out/Discharge Documenting (check all that apply): Patient Departure All imaging exams completed and their final reports reviewed: No Studies - Discharge Plan Condition: Stable Disposition: HOME Prescriptions: ceFUROXime TAB(*) [Ceftin TAB(*)] 250 mg PO BID #14 tab Patient Education Materials: Sinusitis (ED) Referrals: Maria Esther Izquierdo MD [Primary Care Provider] - 4 Days (if not better) - Billing Disposition and Condition Condition: STABLE Disposition: Home
== END 2019-01-17 21:00 | disposition home or self-care (01) ==
LOC: UCCORT 17:54
DX: J01.90 Acute sinusitis, unspecified (principal); K08.89 Other specified disorders of teeth and supporting structures; F17.210 Nicotine dependence, cigarettes, uncomplicated; Z88.2 Allergy status to sulfonamides; Z88.1 Allergy status to other antibiotic agents; Z88.8 Allergy status to other drugs, medicaments and biological substances; Z91.09 Other allergy status, other than to drugs and biological substances
CPT/HCPCS: 87651; 99212; G0463

== ENCOUNTER 2019-03-24 17:29 | Emergency (ER) | payer OTHER ==
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
--- OUTSIDE RECORDS SUMMARY | 2019-03-24 17:43 | XMS REPORT | Continuity of Care Document ---
:1970 External Reference #:[id number] Author Name Foreign Sparks M.D., [facility] Address [address] [place] [address] Care Team Providers Name Role Phone Fabrizio Prater DO Care Team Information Portal Developer Unavailable Maria Esther Izquierdo MD Primary Care Physician Unavailable Payers Date Identification Numbers Payment Provider Subscriber Policy Number: [id number] Aena Antonieta Murcia Group Number: [id number] [id number] PayID: [id number] [place] [address] Problems Active Problems Provider Date Chest pain Foreign Sparks M.D., [facility] Onset: 03/15/2019 Tachycardia Foreign Sparks M.D., [facility] Onset: 03/15/2019 Obesity Foreign Sparks M.D., [facility] Onset: 03/15/2019 Family History Date Family Member(s) Observation Comments Father Thyroid Disease Father Diabetes Father Hypertension Father Graves Disease Mother Hypertension Social History Type Date Description Comments Sex Unknown Marital Status Patient is Diet Healthy, Well Balanced 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 Independent with all ADL's Tobacco Use Start: Unknown Current Cigarette Smoker 1 Pack Daily Smoking Status Reviewed: 03/15/19 Current Cigarette Smoker 1 Pack Daily ETOH Use Denies alcohol use Tobacco Use Start: Unknown Patient is a current smoker, smokes every day Allergies, Adverse Reactions, Alerts Active Allergies Reaction Severity Comments Date NSAIDs 12/14/2012 Sulfa Drugs 12/14/2012 Hydroxyzine 12/14/2012 Oxycodone 12/14/2012 Ibuprofen 12/14/2012 Tetracycline 12/14/2012 Adhesives 12/14/2012 Benadryl 12/14/2012 Minocycline 12/14/2012 Duloxetine 12/14/2012 Latex 12/14/2012 Medications Active Medications SIG Qnty Indications Ordering Provider Date Fish Oil po qd Unknown Capsules Flax Seed Oil po qd Unknown Lasix 1 po qd 90tabs Unknown 20mg Tablets Albuterol as needed Unknown History Medications Omeprazole 1 by mouth 60caps R10.13 [facility] [place], 06/11/2017 - 20mg twice a day Jovan Samaniego M.D. Unknown Capsules Zantac 150 Maximum 1 po bid 60tabs [place], 05/28/2017 - Strength Jovan Samaniego M.D. Unknown 150mg Tablets Co Q-10 po qd Unknown - 200mg 05/28/2017 Capsules Klonopin 1 po qid Unknown - 0.5mg Unknown Tablets Prevacid 1 po qd 60caps Unknown - 30mg 05/28/2017 Capsules Vital Signs Date Vital Result Comment 03/15/2019 7:01am BP Systolic Sitting Left Arm 118 mmHg BP Diastolic Sitting Left Arm 84 mmHg Heart Rate 82 /min Respiratory Rate 18 /min Height 62 inches 5'2" Weight 228.00 lb BMI (Body Mass Index) 41.7 kg/m2 BSA (Body Surface Area) 2.02 m2 [place] body weight in kilograms 50 kg 05/28/2017 2:18pm BP Systolic 126 mmHg BP Diastolic 102 mmHg Height 62 inches 5'2" Weight 217.00 lb BMI (Body Mass Index) 39.7 kg/m2 BSA (Body Surface Area) 1.98 m2 [place] body weight in kilograms 50 kg Results Test Date Facility Test Result H/L Range Note Neutrophils # Bld N2N/CCD Import Neutrophils # Bld 6.70 1.8-7.0 Auto 017 Auto Neutrophils/leuk N2N/CCD Import Neutrophils/leuk 55.0 40.4-72.8 NFr Bld Auto 017 NFr Bld Auto PMV Bld Auto N2N/CCD Import PMV Bld Auto 10.5 8.9-12.4 017 Platelets N2N/CCD Import Platelets 206 150-400 [#/volume] in Blood 017 [#/volume] in by Automated count Blood by Automated count Potassium N2N/CCD Import Potassium 3.8 3.5-5.1 SerPl-sCnc 017 SerPl-sCnc Prot SerPl-mCnc N2N/CCD Import Prot SerPl-mCnc 6.9 6.4-8.2 017 RDW RBC Auto N2N/CCD Import RDW RBC Auto 44.9 3-47 017 RDW RBC Auto-Rto N2N/CCD Import RDW RBC Auto-Rto 14.1 11.7-14.4 017 Serum or plasma N2N/CCD Import Serum or plasma 115 73-393 lipase measurement 017 lipase measurement (enzymatic acti (enzymatic activity/volume) Serum or plasma N2N/CCD Import Serum or plasma 0.2 0.2-1.0 total bilirubin 017 total bilirubin measurement (mass/ measurement (mass/volume) Sodium SerPl-sCnc N2N/CCD Import Sodium SerPl-sCnc 140 136-145 017 WBC # Bld Auto N2N/CCD Import WBC # Bld Auto 12.2 High 3.1-10.7 017 Color Ur N2N/CCD Import Color Ur Yellow Yellow 017 Ketones Ur N2N/CCD Import Ketones Ur Negative Negative Strip.auto-mCnc 017 Strip.auto-mCnc Leukocyte esterase N2N/CCD Import Leukocyte esterase Negative Negative Ur Ql Strip.auto 017 Ur Ql Strip.auto Nitrite Ur Ql N2N/CCD Import Nitrite Ur Ql Negative Negative Strip.auto 017 Strip.auto Prot Ur N2N/CCD Import Prot Ur Negative Negative Strip.auto-mCnc 017 Strip.auto-mCnc Specific gravity of N2N/CCD Import Specific gravity 1.010 1.010- 1.03 Urine by Automated 017 of Urine by 0 test strip Automated test strip Urine appearance N2N/CCD Import Urine appearance Clear Clear determination 017 determination Urine glucose N2N/CCD Import Urine glucose Negative Negative measurement by 017 measurement by automated test automated test strip strip (mass/volume) Urine hemoglobin N2N/CCD Import Urine hemoglobin Negative Negative detection by 017 detection by automated test automated test strip strip Urine human N2N/CCD Import Urine human Negative Negative chorionic 017 chorionic gonadotropin (hCG) gonadotropin (hCG) detection detection Urine total N2N/CCD Import Urine total Negative Negative bilirubin detection 017 bilirubin by automated test detection by automated test strip Urobilinogen Ur N2N/CCD Import Urobilinogen Ur 0.2 0.2-1.0 Strip-aCnc 017 Strip-aCnc pH Ur Strip.auto N2N/CCD Import pH Ur Strip.auto 6.0 Low 6.5-7.5 017 Alp SerPl-cCnc N2N/CCD Import Alp SerPl-cCnc 106 45-117 017 Alt SerPl-cCnc N2N/CCD Import Alt SerPl-cCnc 29 12-78 017 Albumin SerPl-mCnc N2N/CCD Import Albumin SerPl-mCnc 3.3 Low 3.4- 5.0 017 Albumin/Glob SerPl N2N/CCD Import Albumin/Glob SerPl 0.9 017 Anion Gap N2N/CCD Import Anion Gap 6 Low 8-16 SerPl-sCnc 017 SerPl-sCnc Aspartate N2N/CCD Import Aspartate 18 15-37 aminotransferase 017 aminotransferase [Enzymatic [Enzymatic activity/vol activity/volume] in Serum or Plasma Automated N2N/CCD Import Automated 31.1 25.9-32.7 erythrocyte mean 017 erythrocyte mean corpuscular corpuscular hemoglobin hemoglobin (mass per erythrocyte) Automated N2N/CCD Import Automated 34.9 High 30.8-34.3 erythrocyte mean 017 erythrocyte mean corpuscular corpuscular hemoglobin hemoglobin concentration measurement (mass/volume) BUN SerPl-mCnc N2N/CCD Import BUN SerPl-mCnc 10 7-18 017 BUN/Creat SerPl N2N/CCD Import BUN/Creat SerPl 16.6 017 Basophils N2N/CCD Import Basophils 0.02 0.0-0.1 [#/volume] in Blood 017 [#/volume] in by Automated count Blood by Automated count Basophils/leuk NFr N2N/CCD Import Basophils/leuk NFr 0.2 0.0- 1.1 Bld Auto 017 Bld Auto Blood erythrocytes N2N/CCD Import Blood erythrocytes 5.15 3.90- 5.40 automated count 017 automated count (number/volume) (number/volume) Blood hemoglobin N2N/CCD Import Blood hemoglobin 16.0 High 11.6- 15.8 measurement 017 measurement (mass/volume) (mass/volume) Blood monocytes N2N/CCD Import Blood monocytes 1.00 High 0.3-0.9 automated count 017 automated count (number/volume) (number/volume) Co2 SerPl-sCnc N2N/CCD Import Co2 SerPl-sCnc 27 21-32 017 Calcium SerPl-mCnc N2N/CCD Import Calcium SerPl-mCnc 8.6 8.5- 10.1 017 Chloride SerPl-sCnc N2N/CCD Import Chloride 107 98-107 017 SerPl-sCnc Creat SerPl-mCnc N2N/CCD Import Creat SerPl-mCnc 0.6 0.6-1.3 017 Eosinophil # Bld N2N/CCD Import Eosinophil # Bld 0.15 0.0-0.5 Auto 017 Auto Eosinophil/leuk NFr N2N/CCD Import Eosinophil/leuk 1.2 0.0-6.6 Bld Auto 017 NFr Bld Auto Globulin Ser N2N/CCD Import Globulin Ser 3.6 1.9-4.3 Calc-mCnc 017 Calc-mCnc Glucose N2N/CCD Import Glucose 122 High 74-106 [Mass/volume] in 017 [Mass/volume] in Serum or Plasma Serum or Plasma Hct VFr Bld Auto N2N/CCD Import Hct VFr Bld Auto 45.8 36.0-46.1 017 Lymphocytes N2N/CCD Import Lymphocytes 4.31 High 1.0-4.0 [#/volume] in Blood 017 [#/volume] in by Automated count Blood by Automated count Monocytes/leuk NFr N2N/CCD Import Monocytes/leuk NFr 8.2 4.3- 13.2 Bld Auto 017 Bld Auto MCV RBC Auto N2N/CCD Import MCV RBC Auto 88.9 80.9-99.0 017 Lymphocytes/leuk N2N/CCD Import Lymphocytes/leuk 35.4 20.0-42.0 NFr Bld Auto 017 NFr Bld Auto TSH SerPl-aCnc N2N/CCD Import TSH SerPl-aCnc 1.07 0.30-4.20 017 Serum or plasma N2N/CCD Import Serum or plasma 292 High <150 triglyceride 017 triglyceride measurement measurement (mass/vol (mass/volume) Serum or plasma N2N/CCD Import Serum or plasma 203 High <200 cholesterol 017 cholesterol measurement measurement (mass/volu (mass/volume) Serum or plasma N2N/CCD Import Serum or plasma 124 < 100 cholesterol in LDL 017 cholesterol in LDL measurement by measurement by calculation (mass/volume) Serum or plasma N2N/CCD Import Serum or plasma 21 Low >40 cholesterol in HDL 017 cholesterol in HDL measurement (ma measurement (mass/volume) Hgb A1c MFr Bld N2N/CCD Import Hgb A1c MFr Bld 5.6 4.2-6.3 017 Blood glucose mean N2N/CCD Import Blood glucose mean 114 value measurement 017 value measurement estimated fro estimated from glycated hemoglobin (mass/volume) Stool occult blood N2N/CCD Import Stool occult blood Negative Negative 017 Lactate N2N/CCD Import Lactate 1.2 0.4-1.9 [Moles/volume] in 017 [Moles/volume] in Serum or Plasma Serum or Plasma Procedures Date Code Description Status 03/15/2019 90672 EKG-Tracing And Report Completed 08/09/2018 89733 ECHO Transthoracic Inc Performance Continuous Completed Electrocardio 08/09/2018 28024 Event Monitor Inter/Review Only Completed 03/15/2015 48182 Anesthesia, Nose & Accessory Sinus Surgery Not Otherwise Completed Spec 07/15/2011 72771 Anesthesia, Lens Surgery Completed 04/21/2011 63926 Anesthesia, Hysteroscopy, Hystersalpingography Completed 04/18/2011 52640 Stress Test Interpre And Report Only Completed 04/18/2011 90913 Stress Test Physician Super Only Completed 07/17/2010 35955 Stress Test Interpre And Report Only Completed 07/17/2010 32827 Stress Test Physician Super Only Completed 07/17/2010 76901 Myocardial Imaging Tomographic Multiple Study AT Rest Or Completed Stress 06/21/2007 63769 Colonoscopy Completed 06/21/2007 04397 EGD With Biopsy Completed Encounters Type Date Location Provider Dx Diagnosis Office Visit 03/15/2019 Cardiology Office Foreign Sparks E66.9 Obesity, 7:00a Jairon Evans, FACC unspecified R00.0 Tachycardia, unspecified R07.89 Other chest pain Office Visit 06/11/2017 3:30p Surgical Office [place] R10.13 Epigastric pain Jovan Samaniego M.D. Office Visit 05/28/2017 2:15p Surgical Office Marcelo Ho0.13 Epigastric pain Jovan Samaniego M.D. Office Visit 12/15/2012 3:02p Surgical Office Duane Rogers MD 789.04 Pain Abdominal Left Lower Quadrant Office Visit 05/27/2007 3:00p John Acharya MD 564.1 Irritable Bowel Syndrome Office Visit 03/25/2007 2:00p John cAharya MD 564.1 Irritable Bowel Syndrome Plan of Treatment 03/15/2019 - Foreign Sparks M.D., FACCE66.9 Obesity, unspecifiedComments: She gained 11 lbs in the past 2 years.R00.0 Tachycardia, unspecifiedComments: Resolved. Likely secondary to anxiety. She is being worked up for thyroid gnfgcvnS67.89 Other chest painComments:Very atypical. I don't think she needs further studies at this time. I reassured her.AllFollow up:Follow up with us on a PRN basis.
--- OUTSIDE RECORDS SUMMARY | 2019-03-24 17:44 | XMS REPORT | Continuity of Care Document ---
:1970 External Reference #:[id number] Author Name Lady Campo Care Team Providers Name Role Phone Maria Esther Izquierdo MD Care Team Information Pocket Builder Unavailable Maria Esther Izquierdo MD Primary Care Physician Unavailable Payers Date Identification Numbers Payment Provider Subscriber Policy Number: [id number] [employer] Antonieta Murcia [address] [place] [address] Family History Date Family Member(s) Observation Comments Father Hearing Loss Father Diabetes Mother Asthma And Allergies First Son Hearing Loss First Son Asthma First Brother Seasonal Allergies Social History Type Date Description Comments Sex Female Marital Status 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 Tobacco Use Start: Unknown Currently smokes 1-5 [...] 11/30/2017 Vital Signs Date Vital Result Comment 03/02/2019 3:13pm Weight 231.00 lb Height 61 [...] Oximetry 97 % Body Temperature 97.4 F [place] Score 20 05/17/2015 4:31pm Weight 212.00 lb [...] Test Result H/L Range Note Laboratory test 02/19/2019 [facility] Thyroid Stim 0.93 uIU/mL Normal 0.30-4.20 1 finding [address] [facility] [place] [address] [phone] Free T4 1.12 ng/dL Normal 0.76-1.46 Laboratory test 02/12/2016 [facility] Sedimentation Rate 7 mm/ hr 0-20 finding [address] [place] [address] [phone] CBS W/Automated 02/12/2016 [facility] White Blood Count 10.2 K/ uL 3.1-10.7 Diff [address] [place] [address] [phone] Red Blood Count 5.28 M/uL 3.90-5.40 Hemoglobin [...] % 40.4-72.8 Lymph % 36.2 % 17.0-46.1 [place] % 8.8 % 4.3-13.2 Eo% 2.2 % 0.0-6.6 Bas% 0.2 % 0.0-1.1 Neut# 5.35 K/uL 1.8-7.0 Lymph # 3.67 K/uL 1.8-7.0 [place] # 0.89 K/uL 0.3-0.9 Eos # 0.22 K/uL 0.0-0.5 Baso # 0.02 K/uL 0.0-0.1 Laboratory test 03/15/2015 [facility] Uvula Biopsy Or See Note [address] [place] [address] [phone] Laboratory test 03/15/2015 [facility] Urine HCG NEGATIVE Negative [address] (Qualitative) [place], [place] [id number] [phone] 1 E04.2 2 OPERATION/PROCEDURE Endoscopic FESS UPP, septoplasty DIAGNOSIS: "UVULECTOMY": [...] Signed Electronically signed LORENA JESSICA MD 1056 3 FIRST MORNING SPECIMENS GENERALLY CONTAIN THE HIGHEST CONCENTRATION OF HCG AND ARE RECOMMENDED FOR EARLY DETECTION OF . Procedures Date Code Description Status 03/25/2018 36376 Nasal/Sinus Endosc.W.Max.Antrost. Completed 03/25/2018 96162 Nasal/Sinus Endosc.Surg.W.Ethmoid Completed 03/25/2018 60608 Submucous Resect.Turb.Par Or Comp Completed 03/25/2018 77233 Anesthesia, Nose & Accessory Sinus Surgery Not Completed Otherwise Spec 11/24/2016 43268 Nasal Endoscopy, Diag. Completed 06/20/2016 02831 Rhinoplasty, Incl.Septal Repair Completed 06/20/2016 79163 Remove Cartilage For Graft Costochondral Completed 06/20/2016 44448 Anesthesia, Rib Resection Partial Not Otherwise Spec Completed 01/29/2016 58492 Tympanometry Completed 01/29/2016 13760 Audiometry, Comprehensive Completed 01/17/2016 73421 Nasal/Sinus Endosc.W.Max.Antrost. Completed 01/17/2016 59781 Repair Of Nasal Vestibular Completed 01/17/2016 45184 Anesthesia, Nose & Accessory Sinus Surgery Not Completed Otherwise Spec 12/07/2015 60778 Nasal Endoscopy, Diag. Completed 09/04/2015 27408 Sleep Staging 4Or More Para Completed 03/15/2015 33825 Stereotactic Computer-Assisted, Cranial, Extradural Completed 03/15/2015 45203 Palatopharyngoplasty Completed 03/15/2015 62756 Nasal/Sinus Endoscopy Surg/Sphen. Completed 03/15/2015 00862 Nasal/Sinus Endosc.W.Max.Antrost. Completed 03/15/2015 71557 Nasal/Sinus Endosc.Surg.W.Ethmoid Completed 03/15/2015 89714 Septoplasty Completed 03/15/2015 06611 Submucous Resect.Turb.Par Or Comp Completed 11/08/2014 83537 Fiberoptic Laryngoscopy,Diag. Completed 09/10/2009 44041 Sleep Staging 4Or More Para Completed 07/18/2009 123707622 Bone Mineral Density Test Completed 07/18/2009 635291712 Diabetic Retinal Eye Exam Completed 07/18/2009 101070195 Diabetic Foot Exam Completed Encounters Type Date Location Provider Dx Diagnosis Office Visit 07/06/2018 4:45p Main Office Neeraj Gerber M.D. 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 J31.0 Chronic rhinitis R51 Headache R06.83 Snoring Office Visit 11/24/2016 4:00p Main Office Bushra Man J32.9 Chronic sinusitis, Garibay, SKIP PIT WORKER unspecified Office Visit 07/18/2016 9:30a Main Office [...] Headache Office Visit 01/29/2016 4:00p Main Office Gerber, Neeraj, H90.3 Sensorineural hearing M.D. loss, bilateral H69.83 Other specified disorders of Eustachian tube, bilateral J31.0 Chronic rhinitis Office Visit 12/17/2015 3:45p Main Office Neeraj Gerber, J32.9 Chronic sinusitis, M.D. unspecified J31.0 Chronic rhinitis Office Visit 12/07/2015 3:45p Main Office Neeraj Gerber J32.9 Chronic sinusitis, M.D. unspecified J31.0 Chronic rhinitis Office Visit 11/06/2015 5:30p Main Office Neeraj Gerber J32.9 Chronic sinusitis, M.D. unspecified R06.83 Snoring Office Visit 10/25/2015 4:30p Main Office Bushra Man J32.9 Chronic sinusitis, Garibay, SKIP PIT WORKER unspecified Office Visit 09/17/2015 4:30p Main Office Bushra Man J01.81 Other acute Garibay, SKIP PIT WORKER recurrent sinusitis Office Visit 08/15/2015 3:30p Main Office Bushra Man G47.9 Sleep disorder, Garibay, SKIP PIT WORKER unspecified R06.83 Snoring J34.3 Hypertrophy of nasal turbinates J01.80 Other acute sinusitis Office Visit 04/09/2015 4:30p Main Office Neeraj Gerber, 380.10 Otitis Externa M.D. Infective Unspec 388.70 Otalgia & Earache Unspec Office Visit 04/07/2015 10:30a Main Office Neeraj Gerber, 388.70 Otalgia & Earache M.D. Unspec 380.22 Otitis Externa Other Acute Office Visit 11/08/2014 6:15p Main Office Nereaj Gerber, 786.09 Dyspnea & Respiratory M.D. Abnormalities [...]
--- OUTSIDE RECORDS SUMMARY | 2019-03-24 17:44 | XMS REPORT | Continuity of Care Document ---
:1970 External Reference #:[id number] Author Name Gilberto Varela Care Team Providers Name Role Phone Fabrizio Prater DO Care Team Information Air Cargo Specialist Supervisor Unavailable Fabrizio Prater DO Primary Care Physician Unavailable Payers Date Identification Numbers Payment Provider Subscriber Policy Number: [id number] [employer] Group Number: [id number] [address] PayID: [id number] [place] [address] Family History Date Family Member(s) Observation Comments Father Thyroid Disease Father Diabetes Father Hypertension Father Graves Disease Mother Hypertension Social History Type Date Description Comments Sex Unknown Marital Status 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 Capsules DR Oswald 150 Maximum 1 po bid 60tabs [place], 05/28/2017 Strength Jovan Samaniego M.D. 150mg Tablets Fish Oil po qd Unknown Capsules Flax Seed Oil po qd Unknown Klonopin 1 po qid Unknown 0.5mg Tablets Lasix 1 po qd 90tabs Unknown 20mg Tablets Albuterol Unknown History Medications Co Q-10 200mg po qd Unknown - 05/28/2017 Capsules Prevacid 30mg 1 po qd 60caps Unknown - Capsules DR Vital Signs Date Vital Result Comment 05/28/2017 2:18pm BP Systolic 126 mmHg BP Diastolic 102 mmHg Height 62 inches 5'2" Weight 217.00 lb BMI (Body Mass Index) 39.7 kg/m2 BSA (Body Surface Area) 1.98 m2 [place] body weight in kilograms 50 kg Results [...] or Plasma Procedures Date Code Description Status 08/09/2018 96049 ECHO Transthoracic Inc Performance Continuous Completed Electrocardio 08/09/2018 03356 Event Monitor Inter/Review Only Completed 03/15/2015 92169 Anesthesia, Nose & Accessory Sinus Surgery Not Otherwise Completed Spec 07/15/2011 19437 Anesthesia, Lens Surgery Completed 04/21/2011 92750 Anesthesia, Hysteroscopy, Hystersalpingography Completed 04/18/2011 23452 Stress Test Interpre And Report Only Completed 04/18/2011 47989 Stress Test Physician Super Only Completed 07/17/2010 56661 Stress Test Interpre And Report Only Completed 07/17/2010 25506 Stress Test Physician Super Only Completed 07/17/2010 93799 Myocardial Imaging Tomographic Multiple Study AT Rest Or Completed Stress 06/21/2007 80135 Colonoscopy Completed 06/21/2007 72781 EGD With Biopsy Completed Encounters Type Date Location Provider Dx Diagnosis Office Visit 06/11/2017 Surgical Office [place] R10.13 Epigastric pain 3:30p Jovan Samaniego M.D. Office Visit 05/28/2017 Surgical Office [place] R10.13 Epigastric pain 2:15p Jovan Samaniego M.D. Office Visit 12/15/2012 Surgical Office Duane Rogers MD 789.04 Pain Abdominal 3:02p Left Lower Quadrant Office Visit 05/27/2007 John Acharya MD 564.1 Irritable Bowel 3:00p Syndrome Office Visit 03/25/2007 John Acharya MD 564.1 Irritable Bowel 2:00p Syndrome Plan of Treatment 06/11/2017 - Jovan Ho M.D.R10.13 Epigastric painNew Medication :Omeprazole 20 mg - 1 by mouth twice a dayComments:As per the plan outlined previously will up to PPI, refer to GI, prefers [place]. Have not been ableto identify a clear source for the discomfort and have been open about this inability therefore I amrelieve to have her request regarding referral.I'm happy to reevaluate her as necessary or appropriate future.
[2019-03-24 17:48] VITALS: BP 140/72
--- NOTE | 2019-03-24 18:06 | UC ---
Eye Complaint HPI - HPI Summary HPI Summary: 48-year-old female who had some left eye redness with crustiness this morning which has progressively worsened throughout the day. She denies any visual changes. - History of Current Complaint Chief Complaint: UCEye Stated Complaint: LEFT EYE COMPLAINT Time Seen by Provider: 03/24/19 17:46 Hx Obtained From: Patient Hx Last Menstrual Period: none ?: No Onset/Duration: Gradual Onset Timing: Constant Severity Initially: Mild Severity Currently: Mild Pain Intensity: 7 Location of Injury: Other - No injury Aggravating Factor(s): Nothing Alleviating Factor(s): Nothing Associated Signs And Symptoms: Positive: Drainage (Purulent) - Patient states there was crustiness in her left eye this morning. Throughout the day she's had clear drainage. - Allergies/Home Medications Allergies/Adverse Reactions: Allergies Allergy/AdvReac Type Severity Reaction Status Date / Time NSAIDS (Non-Steroidal Allergy Rash Verified 03/24/19 17:44 Anti-Inflamma red (food color) Allergy Rash Verified 03/24/19 17:44 sucralose Allergy Rash Verified 03/24/19 17:44 [From Splenda (sucralose)] Sulfa (Sulfonamide Allergy Rash Verified 03/24/19 17:44 Antibiotics) tetracycline Allergy Rash Verified 03/24/19 17:44 onabotulinumtoxinA AdvReac Dizziness Verified 03/24/19 17:48 [From Botox] Home Medications: Home Medications Albuterol HFA INHALER* [Ventolin HFA Inhaler*] 1 - 2 puff INH Q4H PRN 03/24/19 [ History Confirmed 03/24/19] PMH/Surg Hx/FS Hx/Imm Hx Previously Healthy: Yes Respiratory History: Asthma - Surgical History Surgical History: Yes Surgery Procedure, Year, and Place: UTERINE ABLATION 1998. 3 C-SECTS. APPY. T &A - Family History Known Family History: Positive: Cardiac Disease, Hypertension, Diabetes - Social History Alcohol Use: Rare Substance Use Type: None Smoking Status (MU): Heavy Every Day Tobacco Smoker Type: Cigarettes Amount Used/How Often: <1 PPD Length of Time of Smoking/Using Tobacco: Since Age 16 Have You Smoked in the Last Year: Yes Household Exposure Type: Cigarettes Review of Systems All Other Systems Reviewed And Are Negative: Yes Eyes: Positive: Drainage - Left eye had crusty drainage this morning throughout the day it's been more itchy and watery., Eye Redness Is Patient Immunocompromised?: No Physical Exam Triage Information Reviewed: Yes Appearance: Well-Appearing, No Pain Distress, Well-Nourished Vital Signs: Initial Vital Signs Temp 98.8 F 03/24/19 17:44 Pulse 85 03/24/19 17:44 Resp 24 03/24/19 17:44 BP 140/72 03/24/19 17:44 Pulse Ox 98 03/24/19 17:44 Vital Signs Reviewed: Yes Eyes: Positive: Discharge - Presently the drainage is clear., Other: - Conjunctiva and sclera are injected. AUBREE DALTON Musculoskeletal Exam: Normal Neurological Exam: Normal Psychological Exam: Normal Skin Exam: Normal Eye Complaint Course/Dx - Course Course Of Treatment: I believe this may be more of an allergic conjunctivitis and I advised patient to take Claritin 1 tablet daily however because she had some crustiness this morning I am going to treat her with tobramycin eyedrops to follow-up with an beer coil cleaner in one or 2 days if no improvement. - Differential Dx/Diagnosis Provider Diagnosis: Conjunctivitis, left eye, Allergic conjunctivitis Discharge - Sign-Out/Discharge Documenting (check all that apply): Patient Departure All imaging exams completed and their final reports reviewed: No Studies - Discharge Plan Condition: Fair Disposition: HOME Prescriptions: Tobramycin 0.3% OPHTH.FAY* 1 drop LEFT EYE Q4H 7 Days #1 btl Patient Education Materials: Conjunctivitis (ED) Referrals: Maria Esther Izquierdo MD [Primary Care Provider] - Additional Instructions: Good handwashing. Follow up with an beer coil cleaner in 1-2 days if no improvement. This may be an allergic conjunctivitis therefore he could try Claritin 10 mg 1 tablet daily for one week. - Billing Disposition and Condition Condition: FAIR Disposition: Home
== END 2019-03-24 18:11 | disposition home or self-care (01) ==
LOC: UCCORT 17:29
DX: H10.12 Acute atopic conjunctivitis, left eye (principal); Z88.2 Allergy status to sulfonamides; J45.909 Unspecified asthma, uncomplicated; F17.210 Nicotine dependence, cigarettes, uncomplicated
CPT/HCPCS: 99212; G0463

== ENCOUNTER 2019-03-28 11:25 | Emergency (ER) | payer OTHER ==
[2019-03-28 11:41] VITALS: BP 140/72
--- NOTE | 2019-03-28 11:51 | ED ---
Throat Pain/Nasal Congestion - HPI Summary HPI Summary: 48 yr old female with the complaint of sore throat, right ear pain, sinus congestion, cough. Onset three days ago. Mild dizziness. Mild nausea. She missed work today. No SOB. - History of Current Complaint Chief Complaint: UCGeneralIllness Time Seen by Provider: 03/28/19 11:37 - Allergies/Home Medications Allergies/Adverse Reactions: Allergies Allergy/AdvReac Type Severity Reaction Status Date / Time NSAIDS (Non-Steroidal Allergy Rash Verified 03/28/19 11:38 Anti-Inflamma red (food color) Allergy Rash Verified 03/28/19 11:38 sucralose Allergy Rash Verified 03/28/19 11:38 [From Splenda (sucralose)] Sulfa (Sulfonamide Allergy Rash Verified 03/28/19 11:38 Antibiotics) tetracycline Allergy Rash Verified 03/28/19 11:38 onabotulinumtoxinA AdvReac Dizziness Verified 03/28/19 11:38 [From Botox] PMH/Surg Hx/FS Hx/Imm Hx Endocrine/Hematology History: Denies: Hx Diabetes Cardiovascular History: Denies: Hx Hypertension Respiratory History: Reports: Hx Asthma, Hx Pneumonia - Surgical History Surgery Procedure, Year, and Place: UTERINE ABLATION 1998. 3 C-SECTS. APPY. T &A Infectious Disease History: No Infectious Disease History: Denies: Traveled Outside the [place] in Last 30 Days - Family History Known Family History: Positive: Cardiac Disease, Hypertension, Diabetes - Social History Alcohol Use: Rare Substance Use Type: Reports: None Smoking Status (MU): Heavy Every Day Tobacco Smoker Type: Cigarettes Amount Used/How Often: <1 PPD Length of Time of Smoking/Using Tobacco: Since Age 16 Have You Smoked in the Last Year: Yes Review of Systems Constitutional: Negative Positive: Sore Throat, Ear Ache Positive: Cough All Other Systems Reviewed And Are Negative: Yes Physical Exam Triage Information Reviewed: Yes Vital Signs On Initial Exam: Initial Vitals Temp Pulse Resp BP Pulse Ox 98 F 86 18 140/72 99 03/28/19 11:37 03/28/19 11:37 03/28/19 11:37 03/28/19 11:37 03/28/19 11:37 Vital Signs Reviewed: Yes Appearance: Positive: Well-Appearing, No Pain Distress Skin: Positive: Warm, Skin Color Reflects Adequate Perfusion Head/Face: Positive: Normal Head/Face Inspection Eyes: Positive: EOMI, LAURA ENT: Positive: Pharyngeal erythema, TM red - right. Negative: Nasal congestion Neck: Positive: Nontender Respiratory/Lung Sounds: Positive: Clear to Auscultation, Breath Sounds Present Cardiovascular: Positive: RRR. Negative: Murmur Abdomen Description: Negative: Distended Musculoskeletal: Positive: Strength/ROM Intact Neurological: Positive: Sensory/Motor Intact, Alert, Oriented to Person Place, Time, CN Intact II-III, Normal Gait, Speech Normal Psychiatric: Positive: Normal Diagnostics - Vital Signs Vital Signs Temp Pulse Resp BP Pulse Ox 03/28/19 11:37 98 F 86 18 140/72 99 - Laboratory Lab Statement: Any lab studies that have been ordered have been reviewed, and results considered in the medical decision making process. EENT Course/Dx - Course Course Of Treatment: 48 yr old male with right OM. Rx with Zithromax. - Diagnoses Provider Diagnoses: Right otitis media, Hypertension Discharge - Sign-Out/Discharge Documenting (check all that apply): Patient Departure All imaging exams completed and their final reports reviewed: No Studies - Discharge Plan Condition: Good Disposition: HOME Prescriptions: Azithromycin TAB* [Zithromax TAB (Z-HILARIO) 250 mg #6 tabs] 2 tab PO .TODAY, THEN 1 DAILY #1 hilario Patient Education Materials: Ear Infection (ED), Hypertension (ED) Forms: *Work Release Referrals: Maria Esther Izquierdo MD [Primary Care Provider] - 2 Days - Billing Disposition and Condition Condition: GOOD Disposition: Home
== END 2019-03-28 11:52 | disposition home or self-care (01) ==
LOC: UCCORT 11:25
DX: H66.91 Otitis media, unspecified, right ear (principal); I10 Essential (primary) hypertension; Z88.2 Allergy status to sulfonamides; Z88.1 Allergy status to other antibiotic agents; F17.210 Nicotine dependence, cigarettes, uncomplicated
CPT/HCPCS: 99212; G0463

== ENCOUNTER 2019-09-04 12:08 | Emergency (ER) | payer OTHER ==
--- OUTSIDE RECORDS SUMMARY | 2019-09-04 13:04 | XMS REPORT | Summary of Care ---
:1970 Author Organization [facility] Address [address] [place] [address] Care Team Providers Name Role Phone Fabrizio Prater DO Primary Care Provider Reason for Visit Reason Comments Headache Procedure/Treatment (Routine) Status Reason Specialty Diagnoses / Referred By Referred To Procedures Contact Contact Authorized Neurology / Diagnoses Chronic migraine without aura, not intractable, without status migrainosus Johnie Rick, Infusion Center Infusion Therapy Procedures IA INJECTION,ONABOTULINUMTOXINA Neurology [facility] [address] [address] [place] Phone: [address] [place], [place] Fax: [phone] Phone: Email: [phone] [email or web address] Encounter Details Date Type Department Care Team Description 07/11/2019 Office Visit [facility] Neurology Yesenia Denis PA [facility] at [address] [place] [address] [facility], [facility] Center 4th Floor [address] headache type [address] [place] [id number] (Primary Dx) [place] [phone] [address] [place] [address] Allergies Active Allergy Reactions Severity Noted Date Comments Ibuprofen 11/11/2018 Nsaids Rash High 01/09/2012 Tetracyclines & Related 01/09/2012 documented as of this encounter (statuses as of 07/11/2019) Medications Medication Sig Dispensed Refills Start Date End Date Status Multiple Vitamin Take 1 capsule 0 Active (MULTIVITAMIN) by mouth daily. capsule Botulinum Toxin Inject 185 0 Active Type A 200 units Units as SOLR directed every 3 (three) months erenumab-aooe Inject 1 mL 1 mL 11 02/08/2019 02/08/2020 Active (AIMOVIG) 70 into the skin MG/ML every 30 injectionIndicati (thirty) days ons: Chronic migraine furosemide take 1 tablet 60 tablet 11 06/10/2019 Active (LASIX) 20 MG by mouth twice tablet a day clonazePAM Take 0.5 60 tablet 0 06/26/2018 07/11/2019 Discontinued (KLONOPIN) 0.5 MG tablets by tablet mouth Three times daily as needed for Anxiety, Max Daily Dose: 0.75 mg Hospital, Clinic, or Other Ordered Dose Route Frequency Start Date End Date Status Facility Administered Medication onabotulinumtoxin type A 185 Units IM Once 07/11/2019 07/11/2019 Ended (BOTOX) injection 185 UnitsIndications: Chronic nonintractable headache, unspecified headache type documented as of this encounter (statuses as of 07/11/2019) Active Problems Problem Noted Date Intractable migraine with status migrainosus 06/23/2015 Headache 06/22/2015 Pseudotumor cerebri 2015 Blurring of visual image of both eyes, transient 2015 Cephalalgia 2015 IIH (idiopathic intracranial hypertension) 09/30/2013 documented as of this encounter (statuses as of 07/11/2019) Resolved Problems Problem Noted Date Resolved Date Chronic migraine 03/18/2013 12/28/2017 documented as of this encounter (statuses as of 07/11/2019) Social History Tobacco Use Types Packs/Day Years Used Date Current Every Day Smoker Cigarettes 1 Smokeless Tobacco: Never Used Alcohol Use Drinks/Week oz/Week Comments No Sex Assigned at Date Recorded Not on file Job Start Date Occupation Industry Not on file Not on file Not on file Travel History Travel Start Travel End No recent travel history available. documented as of this encounter Last Filed Vital Signs Not on filedocumented in this encounter Progress Notes Yesenia Denis PA - 07/11/2019 3:30 PM EST [facility] Date Of Service: 07/11/2019 Diagnosis: Chronic Migraine History: Antonieta is a 49 y.o. year old Female with chronic migraine headaches who has failed multiple medical interventions. Overall headaches doing well except increased in the past week. Medications: Outpatient Medications Marked as Taking for the 07/11/19 encounter (Office Visit ) with IV CHAIR 2 [facility] Medication Sig Dispense Refill Extra Info erenumab-aooe (AIMOVIG) 70 MG/ML injection Inject 1 mL into the skin every 30 (thirty) days 1mL 11 1 furosemide (LASIX) 20 MG tablet take 1 tablet by mouth twice a day 60 tablet 11 1 Multiple Vitamin (MULTIVITAMIN) capsule Take 1 capsule by mouth daily. 1 Current Facility-Administered Medications for the 07/11/19 encounter (Office Visit) with IV CHAIR 2 [facility] Medication Dose Route Frequency Provider Last Rate Last Dose Extra Info [COMPLETED] onabotulinumtoxin type A (BOTOX) injection 185 Units 185 Units Intramuscular Once CHAY Iraheta 185 Units at 07/11/19 1520 1 Risk of Botox therapy were explained, including neck pain and/or weakness, headache, eye lid droopiness, facial muscle weakness, and hypersensitivity. Patient understands risks and wishes to proceed. The patient was advised that Botox Injection may not be effective in relieving the chronic headaches.The patient has failed multiple interventions, so I agree that Botox is the most appropriate treatment. Botulinum toxin concentrations, 5 units per .1 cc. Under sterile and controlled conditions using aseptic technique, botulinum toxin type A was administered. A 30 gauge needle was used. The following muscles were injected. 1. Right Frontalis, 2 sites, 5 units one site and 10 units the second for a total of 15 units. 2. Left Frontalis, 2 sites, 5 units one site and 10 units the second for a total of 15 units. 3. Right Aluminum Can Collector, 1 site, 5 units per site for a total of 5 units. 4. Left Aluminum Can Collector, 1 site, 5 units per site for a total of 5 units. 5. Procerus, 1 site, 5 units per site for a total of 5 units. 6. Right Temporalis, 4 sites, 5 units per site except for 1 of 10 units for a total of 25 units. 7. Left Temporalis, 4 sites, 5 units per site except for 1 of 10 units for a total of 25 units. 8. Right Occipitalis, 3 sites, 5 units per site for a total of 15 units. 9. Left Occipitalis, 3 sites, 5 units per site for a total of 15 units. 10. Right Cervical Paraspinal, 2 sites, 5 units per site for a total of 10 units. 11. Left Cervical Paraspinal, 2 sites, 5 units per site for a total of 10 units. 12. Right Trapezius, 3 sites, 5 units per site except for 1 of 10 units for a total of 20 units. 13. Left Trapezius, 3 sites, 5 units per site except for 1 of 10 units for a total of 20 units. In all, 185 units of botulinum toxin were injected and 15 units were discarded. The patient tolerated the procedure without adverse side effects. Post injection instructions are given. She will return for a reevaluation and treatment in 3 months.Electronically signed by CHAY Iraheta at 2018 3:21 PM ESTdocumented in this encounter Plan of Treatment Date Type Specialty Care Team Description 10/13/2019 Office Visit Neurology Johnie Rick MD [address] [place] [address] [phone] 10/18/2019 Office Visit Infusion Therapy Health Maintenance Due Date Last Done Comments MMR Vaccines (1 of 1 - Standard 1971 series) Pneumococcal Vaccine: Pediatrics 1976 (0 to 5 Years) and At-Risk Patients (6 to 64 Years) (1 of 1 - PPSV23) DTaP,Tdap,and Td Vaccines (1 - 1977 Tdap) HIV Screening 1983 Varicella Vaccines (1 of 2 - 13+ 1983 2-dose series) Cervical Cancer Screening 5 years 1991 Influenza Vaccine 05/31/2019 Pneumococcal Vaccine: 65+ Years (1 2035 of 2 - PCV13) HIB Vaccines Aged Out No longer eligible based on patient's age to complete this topic Hepatitis A Vaccines Aged Out No longer eligible based on patient's age to complete this topic Hepatitis B Vaccines Aged Out No longer eligible based on patient's age to complete this topic IPV Vaccines Aged Out No longer eligible based on patient's age to complete this topic documented as of this encounter Results Not on filedocumented in this encounter Visit Diagnoses Diagnosis Chronic nonintractable headache, unspecified headache type - Primary documented in this encounter Administered Medications Medication Order MAR Action Action Date Dose Rate Site onabotulinumtoxin type A (BOTOX) Given 07/11/2019 3:20 PM 185 Units Other injection 185 Units EST 185 Units, Intramuscular, Once, 07/11/19 at 1530, For 1 dose documented in this encounter
[2019-09-04 13:15] VITALS: BP 113/69
--- NOTE | 2019-09-04 13:24 | UC ---
Respiratory Complaint HPI - HPI Summary HPI Summary: c/O congestion with sinus pain and sweat/ chills. Coughing with wheezing with h/ o RAD - History of Current Complaint Chief Complaint: UCGeneralIllness Stated Complaint: CONGESTION COUGH Hx Obtained From: Patient Hx Last Menstrual Period: s/p Uterine Ablation ?: No Onset/Duration: Gradual Onset, Lasting Days - 5, Still Present Timing: Constant Severity Initially: Mild Severity Currently: Moderate Pain Intensity: 0 Character: Cough: Nonproductive - with wheezing Aggravating Factors: Deep Breaths, Recumbent Position Alleviating Factors: Bronchodilator Associated Signs And Symptoms: Positive: Dyspnea, Chills, Wheezing, URI, Nasal Congestion, Sinus Discomfort Related History: Seasonal Allergies - Allergies/Home Medications Allergies/Adverse Reactions: Allergies Allergy/AdvReac Type Severity Reaction Status Date / Time NSAIDS (Non-Steroidal Allergy Rash Verified 09/04/19 13:07 Anti-Inflamma red (food color) Allergy Rash Verified 09/04/19 13:07 sucralose Allergy Rash Verified 09/04/19 13:07 [From Splenda (sucralose)] Sulfa (Sulfonamide Allergy Rash Verified 09/04/19 13:07 Antibiotics) tetracycline Allergy Rash Verified 09/04/19 13:07 onabotulinumtoxinA AdvReac Dizziness Verified 09/04/19 13:07 [From Botox] Home Medications: Home Medications Acetaminophen [Tylenol Extra Strength] 2 tab PO ONCE 09/04/19 [History Confirmed 09/04/19] guaiFENesin [Mucinex] 1 dose PO ONCE 09/04/19 [History Confirmed 09/04/19] PMH/Surg Hx/FS Hx/Imm Hx Respiratory History: Asthma - Surgical History Surgical History: Yes Surgery Procedure, Year, and Place: UTERINE ABLATION 1998. 3 C-SECTS. APPY. T &A - Family History Known Family History: Positive: Cardiac Disease, Hypertension, Diabetes - Social History Occupation: Employed Full-time Lives: With Family Alcohol Use: Rare Substance Use Type: None Smoking Status (MU): Heavy Every Day Tobacco Smoker Type: Cigarettes Amount Used/How Often: ~1 PPD Length of Time of Smoking/Using Tobacco: Since Age 16 Have You Smoked in the Last Year: Yes Household Exposure Type: Cigarettes Review of Systems All Other Systems Reviewed And Are Negative: Yes Constitutional: Positive: Chills, Fatigue ENT: Positive: Sore Throat, Nasal Discharge, Sinus Pain/Tenderness Respiratory: Positive: Shortness Of Breath, Cough Physical Exam Triage Information Reviewed: Yes Appearance: No Pain Distress, Ill-Appearing, Obese Vital Signs: Initial Vital Signs Temp 97.7 F 09/04/19 13:08 Pulse 83 09/04/19 13:08 Resp 16 09/04/19 13:08 BP 113/69 09/04/19 13:08 Pulse Ox 99 09/04/19 13:08 Vital Signs Reviewed: Yes Eyes: Positive: Conjunctiva Clear ENT: Positive: Pharynx normal, Nasal congestion, TMs normal Neck exam: Normal Respiratory: Positive: Wheezing - expiratory wheezes, worse with coughing. Cardiovascular Exam: Normal Musculoskeletal Exam: Normal Neurological Exam: Normal Psychological Exam: Normal Skin Exam: Normal Respiratory Course/Dx - Differential Dx/Diagnosis Differential Diagnosis/HQI/PQRI: Asthma, Influenza, Lower Resp Infection, Sinusitis Provider Diagnosis: Upper respiratory infection with cough and congestion, Acute bronchospasm, Acute bacterial sinusitis Discharge ED - Sign-Out/Discharge Documenting (check all that apply): Patient Departure All imaging exams completed and their final reports reviewed: No Studies - Discharge Plan Condition: Stable Disposition: HOME Prescriptions: Albuterol HFA INHALER* [Ventolin HFA Inhaler*] 2 puff INH Q4H PRN #1 mdi PRN Reason: Wheezing Amoxicillin PO (*) [Amoxicillin 875 MG (*)] 875 mg PO BID #20 tab predniSONE 20 mg TAB [Deltasone 20 MG TAB*] 60 mg PO DAILY #18 tab Patient Education Materials: Sinusitis (ED), Bronchospasm (ED), Upper Respiratory Infection (DC) Referrals: Maria Esther Izquierdo MD [Primary Care Provider] - Additional Instructions: Smoking Cessation Tricks. 1. Cut down by 1 cigarette per day every 2-3 days. Write the number of smokes for that day on the calendar. 2. Identify triggers to smoking: after meals, on the phone, in the car, with coffee, on breaks at work, etc. 3. Formulate a plan with a behavior to replace the smoking. Fireballs in the car , doodle pad on the phone, flavored creamer for the coffee, go for a walk after a meal or on break at work. 4. For stress smokes do deep breathing relaxation. Breath deep in through the nose hold the breath in for a few seconds then breath out slowly through the mouth. - Billing Disposition and Condition Condition: STABLE Disposition: Home
== END 2019-09-04 13:30 | disposition home or self-care (01) ==
LOC: UCCORT 12:08
DX: J06.9 Acute upper respiratory infection, unspecified (principal); R05 Cough; J98.01 Acute bronchospasm; J01.90 Acute sinusitis, unspecified; B96.89 Other specified bacterial agents as the cause of diseases classified elsewhere; R09.81 Nasal congestion; J45.909 Unspecified asthma, uncomplicated; F17.210 Nicotine dependence, cigarettes, uncomplicated; Z88.6 Allergy status to analgesic agent; Z91.02 Food additives allergy status; Z88.2 Allergy status to sulfonamides; Z88.1 Allergy status to other antibiotic agents; Z88.8 Allergy status to other drugs, medicaments and biological substances
CPT/HCPCS: 99212; G0463

== ENCOUNTER 2019-09-07 11:33 | Emergency (ER) | payer OTHER ==
[2019-09-07 11:54] VITALS: BP 121/87
[2019-09-07 12:38] LABS: Influenza A Molecular NEGATIVE (Negative); Influenza B Molecular NEGATIVE (Negative)
--- NOTE | 2019-09-07 12:41 | UC ---
Respiratory Complaint HPI - HPI Summary HPI Summary: cough x 7 days cough is productive with yellow sputum nasal congestion , pnd, sinus pain / pressure , fever, chills, body aches was seen here at the urgent care 4 days ago was dx with sinusitis / bronchitis , is on amoxicillin/ prednisone / albuterol no getting any better , achy all over - History of Current Complaint Chief Complaint: UCGeneralIllness Stated Complaint: RECHECK-BRONCHITIS Time Seen by Provider: 09/07/19 12:09 Hx Obtained From: Patient Hx Last Menstrual Period: s/p Uterine Ablation ?: No Onset/Duration: Gradual Onset, Lasting Days - 7, Still Present Timing: Constant Severity Initially: Severe Severity Currently: Severe Pain Intensity: 7 Character: Cough: Productive Aggravating Factors: Exertion, Deep Breaths Alleviating Factors: Nothing Associated Signs And Symptoms: Positive: Fever, Chills, Wheezing, URI, Nasal Congestion, Sinus Discomfort. Negative: Dyspnea, Pleuritic Chest Pain, Hemoptysis, Dizziness, Calf Pain, Calf Swelling - Allergies/Home Medications Allergies/Adverse Reactions: Allergies Allergy/AdvReac Type Severity Reaction Status Date / Time NSAIDS (Non-Steroidal Allergy Rash Verified 09/07/19 11:54 Anti-Inflamma red (food color) Allergy Rash Verified 09/07/19 11:54 sucralose Allergy Rash Verified 09/07/19 11:54 [From Splenda (sucralose)] Sulfa (Sulfonamide Allergy Rash Verified 09/07/19 11:54 Antibiotics) tetracycline Allergy Rash Verified 09/07/19 11:54 onabotulinumtoxinA AdvReac Dizziness Verified 09/07/19 11:54 [From Botox] Home Medications: Home Medications predniSONE 20 mg TAB [Deltasone 20 MG TAB*] 40 mg PO DAILY 09/07/19 [History Confirmed 09/07/19] PMH/Surg Hx/FS Hx/Imm Hx - Additional Past Medical History Additional PMH: pseudotumor cerebi - Surgical History Surgical History: Yes Surgery Procedure, Year, and Place: UTERINE ABLATION 1998. 3 C-SECTS. APPY. T &A - Family History Known Family History: Positive: Cardiac Disease, Hypertension, Diabetes - Social History Alcohol Use: None Substance Use Type: None Smoking Status (MU): Heavy Every Day Tobacco Smoker Type: Cigarettes Amount Used/How Often: ~1 PPD Length of Time of Smoking/Using Tobacco: Since Age 16 Have You Smoked in the Last Year: Yes Household Exposure Type: Cigarettes Review of Systems All Other Systems Reviewed And Are Negative: Yes Constitutional: Positive: Fever, Chills, Fatigue Skin: Positive: Negative Eyes: Positive: Negative ENT: Positive: Nasal Discharge, Sinus Congestion, Sinus Pain/Tenderness Respiratory: Positive: Cough Musculoskeletal: Positive: Arthralgia, Myalgia Is Patient Immunocompromised?: No Physical Exam Triage Information Reviewed: Yes Appearance: Pain Distress, Obese Vital Signs: Initial Vital Signs Temp 98.3 F 09/07/19 11:48 Pulse 101 09/07/19 11:48 Resp 20 09/07/19 11:48 BP 121/87 09/07/19 11:48 Pulse Ox 98 09/07/19 11:48 Vital Signs Reviewed: Yes Eye Exam: Normal Eyes: Positive: Conjunctiva Clear ENT: Positive: Normal ENT inspection, Hearing grossly normal, Pharynx normal, Nasal congestion Neck exam: Normal Neck: Positive: Supple, Nontender, No Lymphadenopathy Respiratory: Positive: Chest non-tender, Lungs clear, Normal breath sounds Cardiovascular: Positive: Tachycardia Skin Exam: Normal Respiratory Course/Dx - Differential Dx/Diagnosis Provider Diagnosis: Bronchitis, Sinusitis Discharge ED - Sign-Out/Discharge Documenting (check all that apply): Patient Departure All imaging exams completed and their final reports reviewed: No Studies - Discharge Plan Condition: Stable Disposition: HOME Patient Education Materials: Sinusitis (ED), Acute Bronchitis (ED) Forms: *Work Release Referrals: Maria Esther Izquierdo MD [Primary Care Provider] - 7 Days Additional Instructions: may cont. with the current antibiotics, prednisone / albuterol - Billing Disposition and Condition Condition: STABLE Disposition: Home
== END 2019-09-07 12:52 | disposition home or self-care (01) ==
LOC: UCCORT 11:33
DX: J40 Bronchitis, not specified as acute or chronic (principal); J32.9 Chronic sinusitis, unspecified; F17.210 Nicotine dependence, cigarettes, uncomplicated; Z88.8 Allergy status to other drugs, medicaments and biological substances; Z88.6 Allergy status to analgesic agent; Z91.02 Food additives allergy status; Z88.2 Allergy status to sulfonamides
CPT/HCPCS: 99211; G0463

== ENCOUNTER 2019-10-25 16:58 | Emergency (ER) | payer OTHER ==
--- OUTSIDE RECORDS SUMMARY | 2019-10-25 17:52 | XMS REPORT | Continuity of Care Document ---
:1970 External Reference #:[id number] Author Name Neeraj Gerber M.D. (transmitted by agent of provider Rosa Isela Wiggins) Address [address] [place] [address] Care Team Providers Name Role Phone Maria Esther Izquierdo MD - Family Care Team Information [employer] [phone] Medicine Problems Description No Information Available Social History Type Date Description Comments Sex Female Tobacco Use Start: Unknown Currently smokes 1-5 [...] Capsules Sudafed Unknown 120mg Tablets ER 12HR Immunizations Description No Information Available Vital Signs Date Vital Result Comment 09/28/2019 3:56pm Weight 232.00 lb Height 61 inches 5'1" BMI (Body Mass Index) 43.8 kg/m2 BP Systolic 132 mmHg BP Diastolic 81 mmHg Heart Rate 70 /min O2 % BldC Oximetry 98 % Body Temperature 97.7 F Pain Level 0 03/23/2019 4:18pm Weight 227.00 lb Height 61 inches 5'1" BMI (Body Mass Index) 42.9 kg/m2 BP Systolic 143 mmHg BP Diastolic 77 mmHg Heart Rate 89 /min O2 % BldC Oximetry 97 % Body Temperature 98.1 F Pain Level 0 Results Description No Information Available Procedures Date Code Description Status 07/18/2009 957383930 Bone Mineral Density Test Completed 07/18/2009 [id number] Diabetic Retinal Eye Exam Completed 07/18/2009 [id number] Diabetic Foot Exam Completed Medical Devices Description No Information Available Encounters Description No Information Available Assessments Description No Information Available Plan of Treatment No Information Available Functional Status Description No Information Available Mental Status Description No Information Available Referrals Description No Information Available
[2019-10-25 17:57] VITALS: BP 101/84
--- NOTE | 2019-10-25 17:58 | UC ---
Throat Pain/Nasal Ashwin HPI - HPI Summary HPI Summary: 49-year-old female who has had cold symptoms for the past 5 days with sinus pressure and now today both ears are plugged and mildly painful. - History of Current Complaint Chief Complaint: UCGeneralIllness Stated Complaint: SORE THROAT, CONGESTION Time Seen by Provider: 10/25/19 17:51 Hx Obtained From: Patient Hx Last Menstrual Period: s/p Uterine Ablation ?: No Onset/Duration: Gradual Onset, Lasting Days Severity: Mild Pain Intensity: 0 Cough: Nonproductive Associated Signs & Symptoms: Positive: Sinus Discomfort, Nasal Discharge Related History: Smoking - Allergies/Home Medications Allergies/Adverse Reactions: Allergies Allergy/AdvReac Type Severity Reaction Status Date / Time NSAIDS (Non-Steroidal Allergy Rash Verified 10/25/19 17:54 Anti-Inflamma red (food color) Allergy Rash Verified 10/25/19 17:54 sucralose Allergy Rash Verified 10/25/19 17:54 [From Splenda (sucralose)] Sulfa (Sulfonamide Allergy Rash Verified 10/25/19 17:54 Antibiotics) tetracycline Allergy Rash Verified 10/25/19 17:54 onabotulinumtoxinA AdvReac Dizziness Verified 10/25/19 17:54 [From Botox] Home Medications: Home Medications Furosemide TAB* [Lasix TAB*] 20 mg PO DAILY 11/10/17 [History Confirmed 10/25/19 ] Acetaminophen [Tylenol Extra Strength] 2 tab PO ONCE 09/04/19 [History Confirmed 10/25/19] Albuterol HFA INHALER* [Ventolin HFA Inhaler*] 2 puff INH Q4H PRN #1 mdi [Rx Confirmed 10/25/19] Amoxicillin PO (*) [Amoxicillin 875 MG (*)] 875 mg PO BID 10 Days #20 tab [Rx] PMH/Surg Hx/FS Hx/Imm Hx Previously Healthy: Yes Respiratory History: Asthma - Surgical History Surgical History: Yes Surgery Procedure, Year, and Place: UTERINE ABLATION 1998. 3 C-SECTS. APPY. T &A - Family History Known Family History: Positive: Cardiac Disease, Hypertension, Diabetes - Social History Alcohol Use: None Substance Use Type: None Smoking Status (MU): Heavy Every Day Tobacco Smoker Type: Cigarettes Amount Used/How Often: ~1 PPD Length of Time of Smoking/Using Tobacco: Since Age 16 Have You Smoked in the Last Year: Yes Household Exposure Type: Cigarettes Review of Systems All Other Systems Reviewed And Are Negative: Yes ENT: Positive: Ear Ache - Both ears feel plugged., Nasal Discharge, Sinus Congestion, Sinus Pain/Tenderness Is Patient Immunocompromised?: No Physical Exam Triage Information Reviewed: Yes Appearance: Well-Appearing, No Pain Distress, Well-Nourished Vital Signs: Initial Vital Signs Temp 97.5 F 10/25/19 17:55 Pulse 82 10/25/19 17:55 Resp 14 10/25/19 17:55 BP 101/84 10/25/19 17:55 Pulse Ox 100 10/25/19 17:55 Vital Signs Reviewed: Yes Eyes: Positive: Conjunctiva Clear ENT: Positive: Hearing grossly normal, Pharynx normal, Nasal congestion, Nasal drainage - Clear nasal coryza, TM red - Left tympanic membranes is erythematous with poor landmarks and light reflex, right tympanic membranes pearly n[place] with [place] and light reflex., Sinus tenderness - Tenderness over maxillary sinuses bilaterally., Uvula midline Neck: Positive: Supple, Nontender, No Lymphadenopathy Respiratory: Positive: Lungs clear, Normal breath sounds, No respiratory distress, No accessory muscle use Cardiovascular: Positive: RRR, No Murmur, Pulses Normal, Brisk Capillary Refill Musculoskeletal Exam: Normal Neurological Exam: Normal Psychological Exam: Normal Skin Exam: Normal Throat Pain/Nasal Course/Dx - Course Course Of Treatment: The patient is comfortable here. She definitely has a left otitis media however I don't think she has bacterial sinus infection at this point in time. She has taken amoxicillin in the past without any adverse reaction. - Differential Dx/Diagnosis Provider Diagnosis: Left otitis media Discharge ED - Sign-Out/Discharge Documenting (check all that apply): Patient Departure All imaging exams completed and their final reports reviewed: No Studies - Discharge Plan Condition: Good Disposition: HOME Prescriptions: Amoxicillin PO (*) [Amoxicillin 875 MG (*)] 875 mg PO BID 10 Days #20 tab Patient Education Materials: Ear Infection (ED) Referrals: Maria Esther Izquierdo MD [Primary Care Provider] - Additional Instructions: Follow-up with your primary care provider if no improvement in 5-7 days. - Billing Disposition and Condition Condition: GOOD Disposition: Home
== END 2019-10-25 18:08 | disposition home or self-care (01) ==
LOC: UCCORT 16:58
DX: H66.92 Otitis media, unspecified, left ear (principal); J45.909 Unspecified asthma, uncomplicated; R09.89 Other specified symptoms and signs involving the circulatory and respiratory systems; R09.81 Nasal congestion; F17.210 Nicotine dependence, cigarettes, uncomplicated; Z88.1 Allergy status to other antibiotic agents; Z88.2 Allergy status to sulfonamides; Z88.8 Allergy status to other drugs, medicaments and biological substances; Z91.02 Food additives allergy status; Z91.09 Other allergy status, other than to drugs and biological substances
CPT/HCPCS: 99212; G0463